=== PATIENT | female | born 1985 | race American Indian/Alaskan Native ===

== ENCOUNTER 2017-05-22 09:30 | Emergency (ER) | payer MEDICAID, OTHER ==
[2017-05-22] MEDS ORDERED: DUONEB *Not for PRN Use IH ONE (09:57)
--- NOTE | 2017-05-22 10:01 | Emergency Department Report ---
- General Chief Complaint: Upper Respiratory Infection Stated Complaint: SINUS INFECTED Time Seen by Provider: 05/22/17 09:51 Source: patient Mode of arrival: Ambulatory Limitations: No Limitations - History of Present Illness MD Complaint: cough, sore throat, nasal congestion, sinus pain -: Gradual, week(s) (2) Quality: aching Consistency: constant Improves With: nothing Worsens With: nothing Associated Symptoms: headache, nasal congestion, sore throat, dysuria, hoarseness, other (current menses). denies: fever, chills, myalgias, diaphoresis, rhinorrhea, stiff neck, cough, chest pain, shortness of breath, abdominal pain, nausea, vomiting, diarrhea, rash, confusion, right sweats, weight loss, epistaxis, ear pain Treatments Prior to Arrival: none - Related Data Previous Rx's Medication Instructions Recorded Last Taken Type Cefdinir 300 mg PO DAILY #5 capsule 05/22/17 Unknown Rx Allergies Allergy/AdvReac Type Severity Reaction Status Date / Time No Known Allergies Allergy Unverified 12/24/15 10:36 ED Review of Systems ROS: Stated complaint: SINUS INFECTED Other details as noted in HPI Comment: All other systems reviewed and negative Constitutional: no symptoms reported, see HPI. denies: chills, diaphoresis, fever, malaise, weakness Eyes: as per HPI. denies: eye pain, eye discharge, vision change ENT: as per HPI, throat pain, congestion. denies: ear pain, dental pain, hearing loss, epistaxis Respiratory: no symptoms reported, see HPI, cough. denies: orthopnea, shortness of breath, SOB with exertion, SOB at rest, stridor, wheezing Cardiovascular: as per HPI, chest pain. denies: palpitations, dyspnea on exertion, orthopnea Endocrine: no symptoms reported, see HPI. denies: excessive sweating, flushing , intolerance to cold, intolerance to heat Gastrointestinal: as per HPI. denies: abdominal pain, nausea, vomiting Genitourinary: as per HPI, dysuria. denies: urgency Musculoskeletal: as per HPI. denies: back pain, joint swelling Skin: as per HPI. denies: rash, lesions Neurological: as per HPI, headache. denies: weakness, numbness, paresthesias, confusion Psychiatric: as per HPI. denies: anxiety, depression Hematological/Lymphatic: as per HPI. denies: easy bleeding ED Past Medical Hx - Past Medical History Previous Medical History?: Yes Hx Hypertension: Yes Additional medical history: Kidney insufficiency- nephrotic syndrome - Surgical History Past Surgical History?: Yes Additional Surgical History: 01-06-2005 - Family History Family history: no significant - Social History Smoking Status: Never Smoker Substance Use Type: Alcohol, Non Opiate Pain, Other - Medications Home Medications: Home Medications Medication Instructions Recorded Confirmed Last Taken Type Cefdinir 300 mg PO DAILY #5 capsule 05/22/17 Unknown Rx ED Physical Exam - General Limitations: No Limitations General appearance: alert, in no apparent distress - Head Head exam: Present: atraumatic - Eye Eye exam: Present: normal appearance, PERRL - ENT ENT exam: Present: normal exam, normal orophraynx, mucous membranes moist, TM's normal bilaterally, normal external ear exam. Absent: mucous membranes dry - Neck Neck exam: Present: normal inspection, full ROM. Absent: tenderness, meningismus, lymphadenopathy, thyromegaly - Respiratory Respiratory exam: Present: normal lung sounds bilaterally, rhonchi (w cough). Absent: respiratory distress, wheezes, rales, stridor, chest wall tenderness, accessory muscle use, decreased breath sounds, prolonged expiratory - Cardiovascular Cardiovascular Exam: Present: regular rate, normal rhythm, normal heart sounds. Absent: bradycardia, tachycardia, irregular rhythm, JVD, S3, S4 - GI/Abdominal GI/Abdominal exam: Present: soft - Rectal Rectal exam: Present: deferred - Extremities Exam Extremities exam: Present: normal inspection, full ROM, normal capillary refill. Absent: tenderness, pedal edema, joint swelling - Back Exam Back exam: Present: normal inspection, full ROM. Absent: tenderness, CVA tenderness (R), CVA tenderness (L), muscle spasm, paraspinal tenderness, vertebral tenderness - Neurological Exam Neurological exam: Present: alert, oriented X3, CN II-XII intact, normal gait, reflexes normal. Absent: abnormal gait, motor sensory deficit - Psychiatric Psychiatric exam: Present: normal affect, normal mood - Skin Skin exam: Present: warm, dry, intact, normal color. Absent: rash ED Course Vital Signs 05/22/17 05/22/17 05/22/17 09:35 10:34 10:40 Temperature 97.6 F Pulse Rate 71 Pulse Rate [ 74 75 Bilateral Upper Lobe] Respiratory 18 Rate Respiratory 18 18 Rate [Bilateral Upper Lobe] Blood Pressure 115/76 Blood Pressure [Left] O2 Sat by Pulse 100 Oximetry 05/22/17 05/22/17 12:04 12:05 Temperature Pulse Rate 80 Pulse Rate [ Bilateral Upper Lobe] Respiratory 16 18 Rate Respiratory Rate [Bilateral Upper Lobe] Blood Pressure Blood Pressure 120/71 [Left] O2 Sat by Pulse 99 Oximetry - Reevaluation(s) Reevaluation #1: 05/22/17 to er w s/s urti for 2 w started as sinus congestion no fever non toxic non septic appearing hx nephrotic syndrome recent inc in cr and protienuria- neph has changed her meds on exam cough w rhochi no jvd no edema taking po w diff sinus tender hoarse post nasal drip rt tx and felt better ua noted- baseline for pt ED Medical Decision Making - Medical Decision Making urti non septic appearing - Differential Diagnosis urti ro pna Critical care attestation.: If time is entered above; I have spent that time in minutes in the direct care of this critically ill patient, excluding procedure time. ED Disposition Clinical Impression: Sinusitis, Upper respiratory infection due to [place] influenza virus, Nephrotic syndrome Disposition: DC-01 TO HOME OR SELFCARE Is pt being admited?: No Does the pt Need Aspirin: No Condition: Stable Instructions: Sinusitis (ED), Upper Respiratory Infection (ED) Additional Instructions: rest fluids no red bull meds as ordered today follow up pcp 2 days to be sure improving flonase over the counter twice per day for 5 days INCREASE YOUR PREDNISONE TO 20 MG ORALLY FOR 5 DAYS Prescriptions: Cefdinir 300 mg PO DAILY #5 capsule Referrals: PRIMARY CARE, [Primary Care Provider] - 3-5 Days Time of Disposition: 11:37
[2017-05-22 11:09] LABS: Bacteria,Urine 1+ /HPF (Negative); Bilirubin,Urine NEG (Negative); Blood,Urine LG (Negative); Ketones,Urine NEG (Negative); Leukocyte Esterase,Urine TR (Negative); Mucus,Urine FEW /HPF; Nitrite,Urine NEG (Negative); Urobilinogen,Urine < 2.0 mg/dL (<2.0)
[2017-05-22 11:10] LABS: Protein,Urine >500 mg/dL (Negative); RBC,Urine > 182.0 /HPF (0.0-6.0)
[2017-05-22 12:06] VITALS: BP 120/71
== END 2017-05-22 12:05 | disposition home or self-care (01) ==
LOC: ED 09:30
DX: J32.9 Chronic sinusitis, unspecified (principal); J06.9 Acute upper respiratory infection, unspecified; N05.9 Unspecified nephritic syndrome with unspecified morphologic changes; I10 Essential (primary) hypertension
CPT/HCPCS: 81001; 81025; 94640; 96372; 99283; J2930

== ENCOUNTER 2017-06-11 17:51 | Emergency (ER) | payer OTHER ==
[2017-06-11 18:25] VITALS: BP 116/64
[2017-06-11 18:54] LABS: Basophils % (Auto) 0.7 % (0.0-1.8); Eosinophils % (Auto) 1.6 % (0.0-4.3); Hematocrit 43.4 % (30.3-42.9); Hemoglobin 13.9 gm/dl (10.1-14.3); Mean Corpuscular HGB Conc 32 % (30-34); Mean Corpuscular Hemoglobin 28 pg (28-32); Mean Corpuscular Volume 86 fl (79-97); Platelet Count 169 K/mm3 (140-440); Red Blood Count 5.06 M/mm3 (3.65-5.03); Red Cell Distribution Width 13.5 % (13.2-15.2); White Blood Count 7.4 K/mm3 (4.5-11.0)
[2017-06-11 19:13] LABS: Anion Gap 15 mmol/L; BUN/Creatinine Ratio 28.57; Blood Urea Nitrogen 40 mg/dL (7-17); Calcium 7.2 mg/dL (8.4-10.2); Carbon Dioxide 23 mmol/L (22-30); Chloride 105.1 mmol/L (98-107); Glucose 88 mg/dL (65-100); Potassium 4.5 mmol/L (3.6-5.0); Sodium 139 mmol/L (137-145)
--- NOTE | 2017-06-12 09:33 | XRay Report ---
CHEST XRAY, 2 VIEWS: History: Shortness of breath. Findings: There is coarsening of the perihilar markings. The lungs are clear and well expanded. The pleural spaces are clear. The cardiac silhouette and pulmonary vasculature are within normal limits for technique. Calcified right hilar lymph node is noted consistent with chronic granulomas disease. The osseous structures appear within normal limits. IMPRESSION: Findings consistent with reactive airway disease or bronchiolitis.
== END 2017-06-11 21:10 | disposition left against medical advice (07) ==
LOC: ED 17:51
DX: R06.02 Shortness of breath (principal); Z53.21 Procedure and treatment not carried out due to patient leaving prior to being seen by health care provider
CPT/HCPCS: 36415; 71020; 80048; 84484; 84703; 85025; 93005; 93010

== ENCOUNTER 2017-07-25 06:19 | Inpatient (IN) | payer OTHER ==
[2017-07-25 07:22] LABS: Basophils % (Auto) 0.7 % (0.0-1.8); Eosinophils % (Auto) 5.2 % (0.0-4.3); Hematocrit 35.6 % (30.3-42.9); Hemoglobin 11.7 gm/dl (10.1-14.3); Mean Corpuscular HGB Conc 33 % (30-34); Mean Corpuscular Hemoglobin 28 pg (28-32); Mean Corpuscular Volume 84 fl (79-97); Platelet Count 146 K/mm3 (140-440); Red Blood Count 4.27 M/mm3 (3.65-5.03); Red Cell Distribution Width 13.2 % (13.2-15.2); White Blood Count 3.6 K/mm3 (4.5-11.0)
[2017-07-25 07:39] LABS: Alanine Aminotransferase 16 units/L (7-56); Albumin 1.4 g/dL (3.9-5); Albumin/Globulin Ratio 0.7 %; Alkaline Phosphatase 33 units/L (35-129); Anion Gap 14 mmol/L; BUN/Creatinine Ratio 46; Bilirubin,Total < 0.20 mg/dL (0.1-1.2); Blood Urea Nitrogen 65 mg/dL (7-17); Carbon Dioxide 25 mmol/L (22-30); Chloride 105.6 mmol/L (98-107); Glucose 92 mg/dL (65-100); Potassium 4.2 mmol/L (3.6-5.0); Sodium 140 mmol/L (137-145); Total Protein 3.5 g/dL (6.3-8.2)
--- NOTE | 2017-07-25 10:20 | Emergency Department Report ---
ED General Adult HPI - General Chief complaint: Medical Clearance Stated complaint: SWELLING ALL OVER BODY; SOB Time Seen by Provider: 07/25/17 10:17 Source: patient Mode of arrival: Ambulatory Limitations: No Limitations - History of Present Illness Initial comments: The patient states that despite taking her CellCept and Bumex as well as her usual steroid medication she is still swelling. She states that she has doubled up on her Bumex as her doctor has previously recommended. However she has not seen her nephrology group since January she tells me. She reports decreased urination, some orthopnea and leg and abdominal swelling. -: Gradual, days(s) Radiation: other (no pain complaint) Improves with: none Worsens with: none Associated Symptoms: denies other symptoms - Related Data Home Medications Medication Instructions Recorded Confirmed Last Taken Bumetanide 2 mg PO BID 07/25/17 07/25/17 07/24/17 Lisinopril 30 mg PO BID 07/25/17 07/25/17 07/24/17 Mycophenolate 500 mg PO BID 07/25/17 07/25/17 07/24/17 Potassium 40 meq PO BID 07/25/17 07/25/17 07/24/17 Prednisone 5 mg PO DAILY 07/25/17 07/25/17 07/24/17 Allergies Allergy/AdvReac Type Severity Reaction Status Date / Time No Known Allergies Allergy Unverified 12/24/15 10:36 ED Review of Systems ROS: Stated complaint: SWELLING ALL OVER BODY; SOB Other details as noted in HPI Constitutional: denies: chills, fever Eyes: denies: eye pain, eye discharge, vision change ENT: denies: ear pain, throat pain Respiratory: shortness of breath (and orthopnea). denies: cough, wheezing Cardiovascular: denies: chest pain, palpitations Endocrine: no symptoms reported Gastrointestinal: as per HPI, other (abdominal swelling). denies: abdominal pain, nausea, diarrhea Genitourinary: other (decreased urinating). denies: urgency, dysuria, discharge Musculoskeletal: other (leg edema). denies: back pain, joint swelling, arthralgia Skin: denies: rash, lesions Neurological: denies: headache, weakness, paresthesias Psychiatric: denies: anxiety, depression Hematological/Lymphatic: denies: easy bleeding, easy bruising ED Past Medical Hx - Past Medical History Previous Medical History?: Yes Hx Hypertension: Yes Additional medical history: Kidney insufficiency- nephrotic syndrome - Surgical History Past Surgical History?: Yes Additional Surgical History: 01-06-2005 - Social History Smoking Status: Never Smoker - Medications Home Medications: Home Medications Medication Instructions Recorded Confirmed Last Taken Type Bumetanide 2 mg PO BID 07/25/17 07/25/17 07/24/17 History Lisinopril 30 mg PO BID 07/25/17 07/25/17 07/24/17 History Mycophenolate 500 mg PO BID 07/25/17 07/25/17 07/24/17 History Potassium 40 meq PO BID 07/25/17 07/25/17 07/24/17 History Prednisone 5 mg PO DAILY 07/25/17 07/25/17 07/24/17 History ED Physical Exam - General Limitations: No Limitations General appearance: alert, in no apparent distress - Head Head exam: Present: atraumatic, normocephalic - Eye Eye exam: Present: normal appearance, PERRL, EOMI. Absent: scleral icterus - ENT ENT exam: Present: normal exam, mucous membranes moist - Neck Neck exam: Present: normal inspection. Absent: tenderness, meningismus - Respiratory Respiratory exam: Present: normal lung sounds bilaterally. Absent: respiratory distress - Cardiovascular Cardiovascular Exam: Present: regular rate, normal rhythm. Absent: systolic murmur, diastolic murmur, rubs, gallop - GI/Abdominal GI/Abdominal exam: Present: soft, normal bowel sounds, other (can't totally exclude ascites but the abdomen is certainly not at all tense and there is no palpable fluid wave). Absent: distended, tenderness, guarding, rebound, rigid - Extremities Exam Extremities exam: Present: full ROM, normal capillary refill, pedal edema, other (bilateral 1-2+ pretibial edema). Absent: tenderness, joint swelling, calf tenderness - Back Exam Back exam: Present: normal inspection - Neurological Exam Neurological exam: Present: alert, oriented X3, CN II-XII intact. Absent: motor sensory deficit - Psychiatric Psychiatric exam: Present: normal affect, normal mood - Skin Skin exam: Present: warm, dry, intact, normal color. Absent: rash ED Course Vital Signs 07/25/17 07/25/17 07/25/17 06:22 06:36 10:23 Temperature 98.0 F 98.0 F Pulse Rate 76 77 Respiratory 18 17 Rate Blood Pressure 114/70 114/70 111/67 O2 Sat by Pulse 99 100 Oximetry 07/25/17 07/25/17 07/25/17 10:28 10:30 10:32 Temperature Pulse Rate Respiratory Rate Blood Pressure 111/67 111/67 111/67 O2 Sat by Pulse 100 99 99 Oximetry 07/25/17 07/25/17 07/25/17 10:34 10:36 10:38 Temperature Pulse Rate Respiratory Rate Blood Pressure 111/67 111/67 111/67 O2 Sat by Pulse 98 99 99 Oximetry 07/25/17 07/25/17 07/25/17 10:40 11:22 11:34 Temperature Pulse Rate Respiratory Rate Blood Pressure 111/67 121/79 132/107 O2 Sat by Pulse 99 Oximetry - Reevaluation(s) Reevaluation #1: I spoke with Dr. Fritz, nephrology concerning this patient. He stated that if she is compliant with the medication that has been listless prescribed she should be admitted for nephrology consult them further care. I will inform Dr. Schaeffer. 07/25/17 12:41 ED Medical Decision Making - Lab Data Result diagrams: 07/25/17 06:57 07/25/17 06:57 Laboratory Results - last 24 hr 07/25/17 07/25/17 07/25/17 06:57 06:57 06:57 WBC 3.6 L RBC 4.27 Hgb 11.7 Hct 35.6 MCV 84 MCH 28 MCHC 33 RDW 13.2 Plt Count 146 Lymph % (Auto) 25.9 Roosevelt % (Auto) 12.4 H Eos % (Auto) 5.2 H Baso % (Auto) 0.7 Lymph # 0.9 L Roosevelt # 0.4 Eos # 0.2 Baso # 0.0 Seg Neutrophils % 55.8 Seg Neutrophils # 2.0 Sodium 140 Potassium 4.2 Chloride 105.6 Carbon Dioxide 25 Anion Gap 14 BUN 65 H Creatinine 1.4 H Estimated GFR 53 BUN/Creatinine Ratio 46 Glucose 92 Calcium 7.0 L Total Bilirubin < 0.20 AST 15 ALT 16 Alkaline Phosphatase 33 L NT-Pro-B Natriuret Pep 131.1 Total Protein 3.5 L Albumin 1.4 L Albumin/Globulin Ratio 0.7 - Radiology Data interpreted by me: Chest x-ray shows no acute process Critical care attestation.: If time is entered above; I have spent that time in minutes in the direct care of this critically ill patient, excluding procedure time. ED Disposition Clinical Impression: Nephrotic syndrome, Prerenal azotemia UTI (urinary tract infection) Qualifiers: Urinary tract infection type: site unspecified Hematuria presence: without hematuria Qualified Code(s): N39.0 - Urinary tract infection, site not specified Disposition: OP ADMIT IP TO THIS HOSP Is pt being admited?: Yes Does the pt Need Aspirin: Yes Condition: Stable Referrals: PRIMARY CARE, [Primary Care Provider] - 3-5 Days Time of Disposition: 12:54
[2017-07-25 11:12] LABS: Bacteria,Urine 2+ /HPF (Negative); Bilirubin,Urine NEG (Negative); Blood,Urine MOD (Negative); Ketones,Urine NEG (Negative); Leukocyte Esterase,Urine NEG (Negative); Mucus,Urine FEW /HPF; Nitrite,Urine NEG (Negative); Urobilinogen,Urine < 2.0 mg/dL (<2.0)
--- NOTE | 2017-07-25 12:03 | XRay Report ---
AP CHEST: HISTORY: Difficulty in breathing AP view of the chest demonstrates a normal mediastinal and cardiac contour with clear lungs and normal bony and soft tissue structures. IMPRESSION: Unremarkable AP chest. No change since 06/11/17.
[2017-07-25] MEDS ORDERED: ROCEPHIN/NS 1 GM/50 ML 1 GM/50 ML BAG IV ONE ×2 (12:51→14:06)
[2017-07-25] MEDS ORDERED: BABY ASPIRIN PO ONE (12:55)
[2017-07-25] MEDS ORDERED: BABY ASPIRIN ONE (14:06)
[2017-07-25] MEDS: DELTASONE PO SCH (22:30)
[2017-07-25] MEDS: K-DUR PO SCH (22:30)
--- NOTE | 2017-07-25 22:56 | History and Physical Report ---
History of Present Illness Date of examination: 07/25/17 Date of admission: 07/25/17 12:55 Chief complaint: Swelling whole body 1 week History of present illness: History of Present Illness The patient states that despite taking her CellCept and Bumex as well as her usual steroid medication she is still swelling. She states that she has doubled up on her Bumex as her doctor has previously recommended. However she has not seen her nephrology group since January . She reports decreased urination , some orthopnea and leg and abdominal swelling.On prednisone 5 mg po qd.Has Nephrotic syndrome for many years Past Medical History Previous Medical History?: Yes Hx Hypertension: Yes Additional medical history: Kidney insufficiency- nephrotic syndrome - Surgical History Past Surgical History?: Yes Additional Surgical History: 01-06-2005 - Social History Smoking Status: Never Smoker - Medications Home Medications: Home Medications Medication Instructions Recorded Confirmed Last Taken Type Bumetanide 2 mg PO BID 07/25/17 07/25/17 07/24/17 History Lisinopril 30 mg PO BID 07/25/17 07/25/17 07/24/17 History Mycophenolate 500 mg PO BID 07/25/17 07/25/17 07/24/17 History Potassium 40 meq PO BID 07/25/17 07/25/17 07/24/17 History Prednisone 5 mg PO DAILY 07/25/17 07/25/17 07/24/17 History Review of Systems Stated complaint: SWELLING ALL OVER BODY; SOB Other details as noted in HPI Constitutional: denies: chills, fever Eyes: denies: eye pain, eye discharge, vision change ENT: denies: ear pain, throat pain Respiratory: shortness of breath (and orthopnea). denies: cough, wheezing Cardiovascular: denies: chest pain, palpitations Endocrine: no symptoms reported Gastrointestinal: as per HPI, other (abdominal swelling). denies: abdominal pain, nausea, diarrhea Genitourinary: other (decreased urinating). denies: urgency, dysuria, discharge Musculoskeletal: other (leg edema). denies: back pain, joint swelling, arthralgia Skin: denies: rash, lesions Neurological: denies: headache, weakness, paresthesias Psychiatric: denies: anxiety, depression Hematological/Lymphatic: denies: easy bleeding, easy bruising Medications and Allergies Allergies Allergy/AdvReac Type Severity Reaction Status Date / Time No Known Allergies Allergy Unverified 12/24/15 10:36 Home Medications Medication Instructions Recorded Confirmed Last Taken Type Bumetanide 2 mg PO BID 07/25/17 07/25/17 07/24/17 History Lisinopril 30 mg PO BID 07/25/17 07/25/17 07/24/17 History Mycophenolate 500 mg PO BID 07/25/17 07/25/17 07/24/17 History Potassium 40 meq PO BID 07/25/17 07/25/17 07/24/17 History Prednisone 5 mg PO DAILY 07/25/17 07/25/17 07/24/17 History Active Meds: Active Medications Influenza Virus Vaccine Quadrival (Fluarix Quad 0720-1554(36 Mos+)) 0.5 ml IM .ONCE ONE Stop: 07/26/17 12:01 Exam - Constitutional Vitals: Temp Pulse Resp BP Pulse Ox 98.0 F 67 16 98/47 100 07/25/17 22:17 07/25/17 22:17 07/25/17 22:17 07/25/17 22:17 07/25/17 22:17 General appearance: Present: no acute distress, mild distress, well-nourished - EENT Eyes: Present: PERRL ENT: hearing intact, clear oral mucosa - Neck Neck: Present: supple, normal ROM - Respiratory Respiratory effort: normal Respiratory: bilateral: CTA - Cardiovascular Heart rate: 80 Rhythm: regular Heart Sounds: Present: S1 & S2. Absent: rub, click - Extremities Extremities: no ischemia, pulses intact, pulses symmetrical, No edema Extremity abnormal: edema (bilateral) Peripheral Pulses: within normal limits - Abdominal General gastrointestinal: Present: soft, non-tender, non-distended, normal bowel sounds Female genitourinary: Present: normal - Integumentary Integumentary: Present: clear, warm, dry - Musculoskeletal Musculoskeletal: gait normal, strength equal bilaterally - Psychiatric Psychiatric: appropriate mood/affect, intact judgment & insight - Neurologic Neurologic: CNII-XII intact, moves all extremities - Allied Health Allied health notes reviewed: nursing, case management Results - Labs CBC & Chem 7: 07/25/17 06:57 07/25/17 06:57 Labs: Laboratory Last Values WBC 3.6 K/mm3 (4.5-11.0) L 07/25/17 06:57 RBC 4.27 M/mm3 (3.65-5.03) 07/25/17 06:57 Hgb 11.7 gm/dl (10.1-14.3) 07/25/17 06:57 Hct 35.6 % (30.3-42.9) 07/25/17 06:57 MCV 84 fl (79-97) 07/25/17 06:57 MCH 28 pg (28-32) 07/25/17 06:57 MCHC 33 % (30-34) 07/25/17 06:57 RDW 13.2 % (13.2-15.2) 07/25/17 06:57 Plt Count 146 K/mm3 (140-440) 07/25/17 06:57 Lymph % (Auto) 25.9 % (13.4-35.0) 07/25/17 06:57 Yates % (Auto) 12.4 % (0.0-7.3) H 07/25/17 06:57 Eos % (Auto) 5.2 % (0.0-4.3) H 07/25/17 06:57 Baso % (Auto) 0.7 % (0.0-1.8) 07/25/17 06:57 Lymph # 0.9 K/mm3 (1.2-5.4) L 07/25/17 06:57 Yates # 0.4 K/mm3 (0.0-0.8) 07/25/17 06:57 Eos # 0.2 K/mm3 (0.0-0.4) 07/25/17 06:57 Baso # 0.0 K/mm3 (0.0-0.1) 07/25/17 06:57 Seg Neutrophils % 55.8 % (40.0-70.0) 07/25/17 06:57 Seg Neutrophils # 2.0 K/mm3 (1.8-7.7) 07/25/17 06:57 Sodium 140 mmol/L (137-145) 07/25/17 06:57 Potassium 4.2 mmol/L (3.6-5.0) 07/25/17 06:57 Chloride 105.6 mmol/L (98-107) 07/25/17 06:57 Carbon Dioxide 25 mmol/L (22-30) 07/25/17 06:57 Anion Gap 14 mmol/L 07/25/17 06:57 BUN 65 mg/dL (7-17) H 07/25/17 06:57 Creatinine 1.4 mg/dL (0.7-1.2) H 07/25/17 06:57 Estimated GFR 53 ml/min 07/25/17 06:57 BUN/Creatinine Ratio 46 % 07/25/17 06:57 Glucose 92 mg/dL (65-100) 07/25/17 06:57 Calcium 7.0 mg/dL (8.4-10.2) L 07/25/17 06:57 Total Bilirubin < 0.20 mg/dL (0.1-1.2) 07/25/17 06:57 AST 15 units/L (5-40) 07/25/17 06:57 ALT 16 units/L (7-56) 07/25/17 06:57 Alkaline Phosphatase 33 units/L (35-129) L 07/25/17 06:57 NT-Pro-B Natriuret Pep 131.1 pg/mL (0-450) 07/25/17 06:57 Total Protein 3.5 g/dL (6.3-8.2) L 07/25/17 06:57 Albumin 1.4 g/dL (3.9-5) L 07/25/17 06:57 Albumin/Globulin Ratio 0.7 % 07/25/17 06:57 Urine Color Yellow (Yellow) 07/25/17 10:50 Urine Turbidity Clear (Clear) 07/25/17 10:50 Urine pH 6.0 (5.0-7.0) 07/25/17 10:50 Ur Specific Chicken 1.015 (1.003-1.030) 07/25/17 10:50 Urine Protein 30 mg/dl mg/dL (Negative) 07/25/17 10:50 Urine Glucose (UA) Neg mg/dL (Negative) 07/25/17 10:50 Urine Ketones Neg mg/dL (Negative) 07/25/17 10:50 Urine Blood Mod (Negative) 07/25/17 10:50 Urine Nitrite Neg (Negative) 07/25/17 10:50 Urine Bilirubin Neg (Negative) 07/25/17 10:50 Urine Urobilinogen < 2.0 mg/dL (<2.0) 07/25/17 10:50 Ur Leukocyte Esterase Neg (Negative) 07/25/17 10:50 Urine WBC (Auto) 12.0 /HPF (0.0-6.0) H 07/25/17 10:50 Urine RBC (Auto) 2.0 /HPF (0.0-6.0) 07/25/17 10:50 U Epithel Cells (Auto) 8.0 /HPF (0-13.0) 07/25/17 10:50 Urine Bacteria (Auto) 2+ /HPF (Negative) 07/25/17 10:50 Urine Mucus Few /HPF 07/25/17 10:50 Urine HCG, Qual Negative (Negative) 07/25/17 10:50 BMP 07/25/17 06:57 Sodium 140 Potassium 4.2 Chloride 105.6 Carbon Dioxide 25 BUN 65 H Creatinine 1.4 H Glucose 92 Calcium 7.0 L Liver Function 07/25/17 Range/Units 06:57 Total Bilirubin < 0.20 (0.1-1.2) mg/dL AST 15 (5-40) units/L ALT 16 (7-56) units/L Alkaline Phosphatase 33 L (35-129) units/L Albumin 1.4 L (3.9-5) g/dL Urine 07/25/17 Range/Units 10:50 Urine Color Yellow (Yellow) Urine pH 6.0 (5.0-7.0) Ur Specific Chicken 1.015 (1.003-1.030) Urine Protein 30 mg/dl (Negative) mg/dL Urine Glucose (UA) Neg (Negative) mg/dL Assessment and Plan Advance Directives: Yes (FC) VTE prophylaxis?: Chemical Plan of care discussed with patient/family: Yes - Patient Problems (1) Nephrotic syndrome Current Visit: Yes Status: Acute Plan to address problem: Increased prednisone to 10 mg but will defer to Nephrology for further increases.Cont Cellcept. (2) Prerenal azotemia Current Visit: Yes Status: Acute Plan to address problem: Nephrology consulted (3) UTI (urinary tract infection) Current Visit: Yes Status: Acute Qualifiers: Urinary tract infection type: acute cystitis Hematuria presence: without hematuria Indwelling urinary catheter type: I Encounter type: E Qualified Code(s): N30.00 - Acute cystitis without hematuria Plan to address problem: On Rocephin (4) Severe malnutrition Current Visit: Yes Status: Acute Plan to address problem: Sec to Proteinuria. Dietitian consulted (5) DVT prophylaxis Current Visit: Yes Status: Acute Plan to address problem: on Heparin
[2017-07-25] MEDS ORDERED: BUMEX PO SCH (23:00)
[2017-07-25] MEDS ORDERED: LISINOPRIL 30 MG PO SCH (23:00)
[2017-07-25] MEDS ORDERED: BUMETANIDE 2 MG PO SCH (23:00)
[2017-07-25] MEDS ORDERED: NON-FORMULARY (Mycophenolate 500 MG) PO SCH (23:00)
[2017-07-25] MEDS: CELLCEPT PO SCH (23:50)
--- NOTE | 2017-07-26 07:36 | Progress Note ---
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 Claimed that she was compliant to her diuretic CellCept and all her meds. But still had significant swelling for which she didn't present to the hospital. She reported decreased urination orthopnea leg and abdominal swelling Fluid overload Due to an infarct syndrome, continue Lasix IV Nephrotic syndrome Continue SUSIE inhibitor, continue CellCept, nephrology consult UTI Continue Rocephin, follow-up urine culture Acute kidney injury/vasomotor nephropathy Kidney perfusion should improve with diuresis, nephrology on board, follow-up repeats creatinine HTN continue BP meds DVT prophylaxis Lovenox History Interval history: She is complaining of weight gain, reduced urine output, and edema of her abdominal wall Hospitalist Physical - Physical exam Narrative exam: General.: Appears well, no distress, nontoxic HEENT: Moist mucous membranes, extraocular muscles intact, no lymphadenopathy Neck: supple Cardiac: S1-S2 heard Lungs: clear to auscultation bilaterally Abdomen: soft , nontender, nondistended, bowel sounds positive edema of abdominal skin Extremities: no edema clubbing or cyanosis Skin: no rash or lesions Neurologic: no gross focal deficits Psych: appropriate behavior, appropriate mood, corporative, judgment intact - Constitutional Vitals: Temp Pulse Resp BP Pulse Ox 98.0 F 67 16 98/47 100 07/25/17 22:17 07/25/17 22:17 07/25/17 22:17 07/25/17 22:17 07/25/17 22:17 Results - Labs CBC & Chem 7: 07/26/17 07:39 07/26/17 07:39 Labs: Laboratory Last Values WBC 3.6 K/mm3 (4.5-11.0) L 07/25/17 06:57 RBC 4.27 M/mm3 (3.65-5.03) 07/25/17 06:57 Hgb 11.7 gm/dl (10.1-14.3) 07/25/17 06:57 Hct 35.6 % (30.3-42.9) 07/25/17 06:57 MCV 84 fl (79-97) 07/25/17 06:57 MCH 28 pg (28-32) 07/25/17 06:57 MCHC 33 % (30-34) 07/25/17 06:57 RDW 13.2 % (13.2-15.2) 07/25/17 06:57 Plt Count 146 K/mm3 (140-440) 07/25/17 06:57 Lymph % (Auto) 25.9 % (13.4-35.0) 07/25/17 06:57 [place] % (Auto) 12.4 % (0.0-7.3) H 07/25/17 06:57 Eos % (Auto) 5.2 % (0.0-4.3) H 07/25/17 06:57 Baso % (Auto) 0.7 % (0.0-1.8) 07/25/17 06:57 Lymph # 0.9 K/mm3 (1.2-5.4) L 07/25/17 06:57 [place] # 0.4 K/mm3 (0.0-0.8) 07/25/17 06:57 Eos # 0.2 K/mm3 (0.0-0.4) 07/25/17 06:57 Baso # 0.0 K/mm3 (0.0-0.1) 07/25/17 06:57 Seg Neutrophils % 55.8 % (40.0-70.0) 07/25/17 06:57 Seg Neutrophils # 2.0 K/mm3 (1.8-7.7) 07/25/17 06:57 Sodium 140 mmol/L (137-145) 07/25/17 06:57 Potassium 4.2 mmol/L (3.6-5.0) 07/25/17 06:57 Chloride 105.6 mmol/L (98-107) 07/25/17 06:57 Carbon Dioxide 25 mmol/L (22-30) 07/25/17 06:57 Anion Gap 14 mmol/L 07/25/17 06:57 BUN 65 mg/dL (7-17) H 07/25/17 06:57 Creatinine 1.4 mg/dL (0.7-1.2) H 07/25/17 06:57 Estimated GFR 53 ml/min 07/25/17 06:57 BUN/Creatinine Ratio 46 % 07/25/17 06:57 Glucose 92 mg/dL (65-100) 07/25/17 06:57 Calcium 7.0 mg/dL (8.4-10.2) L 07/25/17 06:57 Total Bilirubin < 0.20 mg/dL (0.1-1.2) 07/25/17 06:57 AST 15 units/L (5-40) 07/25/17 06:57 ALT 16 units/L (7-56) 07/25/17 06:57 Alkaline Phosphatase 33 units/L (35-129) L 07/25/17 06:57 NT-Pro-B Natriuret Pep 131.1 pg/mL (0-450) 07/25/17 06:57 Total Protein 3.5 g/dL (6.3-8.2) L 07/25/17 06:57 Albumin 1.4 g/dL (3.9-5) L 07/25/17 06:57 Albumin/Globulin Ratio 0.7 % 07/25/17 06:57 Urine Color Yellow (Yellow) 07/25/17 10:50 Urine Turbidity Clear (Clear) 07/25/17 10:50 Urine pH 6.0 (5.0-7.0) 07/25/17 10:50 Ur Specific [place] 1.015 (1.003-1.030) 07/25/17 10:50 Urine Protein 30 mg/dl mg/dL (Negative) 07/25/17 10:50 Urine Glucose (UA) Neg mg/dL (Negative) 07/25/17 10:50 Urine Ketones Neg mg/dL (Negative) 07/25/17 10:50 Urine Blood Mod (Negative) 07/25/17 10:50 Urine Nitrite Neg (Negative) 07/25/17 10:50 Urine Bilirubin Neg (Negative) 07/25/17 10:50 Urine Urobilinogen < 2.0 mg/dL (<2.0) 07/25/17 10:50 Ur Leukocyte Esterase Neg (Negative) 07/25/17 10:50 Urine WBC (Auto) 12.0 /HPF (0.0-6.0) H 07/25/17 10:50 Urine RBC (Auto) 2.0 /HPF (0.0-6.0) 07/25/17 10:50 U Epithel Cells (Auto) 8.0 /HPF (0-13.0) 07/25/17 10:50 Urine Bacteria (Auto) 2+ /HPF (Negative) 07/25/17 10:50 Urine Mucus Few /HPF 07/25/17 10:50 Urine HCG, Qual Negative (Negative) 07/25/17 10:50
[2017-07-26 08:10] LABS: Phosphorous 3.6 mg/dL (2.5-4.5)
[2017-07-26 08:13] LABS: Alanine Aminotransferase 13 units/L (7-56); Albumin 1.4 g/dL (3.9-5); Albumin/Globulin Ratio 0.6 %; Alkaline Phosphatase 34 units/L (35-129); Anion Gap 14 mmol/L; BUN/Creatinine Ratio 39; Bilirubin,Total < 0.20 mg/dL (0.1-1.2); Blood Urea Nitrogen 62 mg/dL (7-17); Calcium 7.1 mg/dL (8.4-10.2); Carbon Dioxide 24 mmol/L (22-30); Chloride 104.5 mmol/L (98-107); Glucose 118 mg/dL (65-100); Sodium 137 mmol/L (137-145); Total Protein 3.6 g/dL (6.3-8.2)
[2017-07-26 08:27] LABS: Hematocrit 35.6 % (30.3-42.9); Hemoglobin 11.5 gm/dl (10.1-14.3); Mean Corpuscular HGB Conc 32 % (30-34); Mean Corpuscular Hemoglobin 27 pg (28-32); Mean Corpuscular Volume 84 fl (79-97); Platelet Count 146 K/mm3 (140-440); Red Blood Count 4.23 M/mm3 (3.65-5.03); Red Cell Distribution Width 13.6 % (13.2-15.2); White Blood Count 3.9 K/mm3 (4.5-11.0)
[2017-07-26] MEDS: LASIX IV SCH ×2 (08:39→18:57)
--- NOTE | 2017-07-26 09:42 | Consultation ---
History of Present Illness - Reason for Consult Consult date: 07/26/17 proteinuria Requesting physician: KRISTOPHER THACKER - History of Present Illness Mrs. Mahajan is a 31-year-old -[place] female with past medical history significant for nephrotic syndrome as well as hypertension presented to the emergency room with increasing leg edema. She has been taking Bumex 2 mg twice a day without any significant improvement. She has a history of nephrotic syndrome for many years. States that she had a kidney biopsy done in [place] more than 10 years ago. She was treated with steroids as well as CellCept. She is currently seeing a manager city at [facility]. Earlier in November she was taking ibuprofen following which her renal function had deteriorated. However it was subsequently discontinued. She was having more protein spillage and her dosage of CellCept was increased as well. She is now admitted for diuresis Past History Past Medical History: hypertension, other (nephrotic syndrome) Past Surgical History: No surgical history Social history: other (denies smoking or drinking) Medications and Allergies Allergies Allergy/AdvReac Type Severity Reaction Status Date / Time No Known Allergies Allergy Unverified 12/24/15 10:36 Home Medications Medication Instructions Recorded Confirmed Last Taken Type Bumetanide 2 mg PO BID 07/25/17 07/25/17 07/24/17 History Lisinopril 30 mg PO BID 07/25/17 07/25/17 07/24/17 History Mycophenolate 500 mg PO BID 07/25/17 07/25/17 07/24/17 History Potassium 40 meq PO BID 07/25/17 07/25/17 07/24/17 History Prednisone 5 mg PO DAILY 07/25/17 07/25/17 07/24/17 History Active Meds: Active Medications Albumin Human (Alburx 25% (Albumin)) 25 gm IV Q12HR [place] Enoxaparin Sodium (Lovenox) 40 mg SUB-Q QDAY@2200 [place] Furosemide (Lasix) 40 mg IV 0600,1800 [place] Last Admin: 07/26/17 08:39 Dose: 40 mg Ceftriaxone Sodium (Rocephin/Ns 1 Gm/50 Ml) 1 gm in 50 mls @ 100 mls/hr IV Q24HR [place] PRN Reason: Protocol Influenza Virus Vaccine Quadrival (Fluarix Quad [id number](36 Mos+)) 0.5 ml IM .ONCE ONE Stop: 07/26/17 12:01 Lisinopril (Zestril) 30 mg PO BID [facility] Mycophenolate Mofetil (Cellcept) 500 mg PO BID [facility] Last Admin: 07/25/17 23:50 Dose: 500 mg Potassium Chloride (K-Dur) 40 meq PO BID [facility] Last Admin: 07/25/17 22:30 Dose: 40 meq Prednisone (Deltasone) 5 mg PO QDAY [facility] Last Admin: 07/25/17 22:30 Dose: 5 mg Review of Systems All systems: negative (negative except as noted above) Exam - Vital Signs Vital signs: Vital Signs Temp Pulse Resp BP Pulse Ox 98.0 F 76 18 114/70 99 07/25/17 06:22 07/25/17 06:22 07/25/17 06:22 07/25/17 06:22 07/25/17 06:22 - General Appearance General appearance: well-developed, well-nourished, appears stated age EENT: PERRL, mucous membranes moist Neck: Present: neck supple Respiratory: Clear to Ascultation Heart: regular, normal heart rate Gastrointestinal: Present: normal, normoactive bowel sounds, other (she also has some abdominal wall edema) Integumentary: no rash, other (1+ edema bilaterally) Results - Lab Results 07/26/17 07:39 07/26/17 07:39 Most recent lab results Calcium 7.1 mg/dL (8.4-10.2) L 07/26/17 07:39 Phosphorus 3.60 mg/dL (2.5-4.5) 07/26/17 07:39 Magnesium 2.00 mg/dL (1.7-2.3) 07/26/17 07:39 Assessment and Plan Impression * Nephrotic syndrome * Hypertension * Anasarca Recommendations * Shall add IV albumin prior to her Lasix * Shall check a urine protein creatinine ratio * Continue steroids as well as CellCept for now * Shall do vasculitis workup * She had seen our group in the past. Shall review office records regarding her renal workup and status. Shall try to obtain records from her [facility] manager city if available * She may need repeat kidney biopsy. Shall check her coagulation profile in anticipation of that * Thank you very much for the consultation. Shall follow along with you
[2017-07-26] MEDS ORDERED: POTASSIUM PO SCH (10:00)
[2017-07-26] MEDS ORDERED: NON-FORMULARY (Prednisone 10 MG) PO SCH (10:00)
[2017-07-26] MEDS: K-DUR PO SCH (10:37)
[2017-07-26] MEDS: ROCEPHIN/NS 1 GM/50 ML 1 GM/50 ML BAG IV SCH (10:37)
[2017-07-26] MEDS: DELTASONE PO SCH (10:37)
[2017-07-26] MEDS: CELLCEPT PO SCH ×2 (10:37→22:06)
[2017-07-26] MEDS: ZESTRIL PO SCH ×2 (10:38→22:06)
[2017-07-26] MEDS ORDERED: Fluarix Quad 2017-2018(36 MOS+) IM ONE (12:00)
[2017-07-26 14:26] LABS: INR 1.08 (0.87-1.13)
[2017-07-26] MEDS: ALBURX 25% (ALBUMIN) IV SCH (18:14)
[2017-07-26] MEDS ORDERED: LOVENOX SUB-Q SCH (22:00)
[2017-07-27] MEDS: ALBURX 25% (ALBUMIN) IV SCH ×2 (07:07→17:51)
[2017-07-27 07:09] LABS: Alanine Aminotransferase 9 units/L (7-56); Albumin 1.5 g/dL (3.9-5); Albumin/Globulin Ratio 0.7 %; Alkaline Phosphatase 30 units/L (35-129); Anion Gap 13 mmol/L; BUN/Creatinine Ratio 36; Bilirubin,Total < 0.20 mg/dL (0.1-1.2); Blood Urea Nitrogen 58 mg/dL (7-17); Calcium 7.1 mg/dL (8.4-10.2); Carbon Dioxide 24 mmol/L (22-30); Chloride 105.8 mmol/L (98-107); Glucose 97 mg/dL (65-100); Potassium 4.1 mmol/L (3.6-5.0); Sodium 139 mmol/L (137-145); Total Protein 3.7 g/dL (6.3-8.2)
[2017-07-27] MEDS: LASIX IV SCH ×2 (08:27→19:29)
--- NOTE | 2017-07-27 09:20 | Progress Note ---
Assessment and Plan Impression * Nephrotic syndrome * Hypertension * Anasarca Recommendations * Continue IV albumin with Lasix * Her urine shows only 1+ dipstick protein. Follow-up results of urine protein creatinine ratio as well as vasculitis workup * Continue steroids as well as CellCept for now * Patient serum albumin seems to be disproportionately low compared to her degree of proteinuria. Shall check an HIV titer as well * She had seen our group in the past. Shall review office records regarding her renal workup and status. 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 Pros and cons discussed with patient at length . Lovenox discontinued. PT/PTT normal Subjective Date of service: 07/27/17 Interval history: Patient is awake and alert. Responding better to IV albumin with Lasix. Edema seems to be improving. Patient denies any shortness of breath Objective - Vital Signs Vital signs: Vital Signs - 12hr 07/26/17 07/27/17 23:50 07:48 Temperature 97.5 F L 98.2 F Pulse Rate 68 65 Respiratory 18 18 Rate Blood Pressure 100/71 101/62 O2 Sat by Pulse 100 100 Oximetry - General Appearance General appearance: well-developed, well-nourished, appears stated age EENT: PERRL, mucous membranes moist Neck: no JVD, no thyromegaly, no carotid bruit, supple Respiratory: Present: Clear to Ascultation Cardiology: regular, normal heart rate, S1S2, no murmurs Gastrointestinal: normal, normoactive bowel sounds Integumentary: no rash, other (2+ edema. Especially over abdominal wall as well as her thigh) - Lab 07/26/17 07:39 07/27/17 06:28 Most recent lab results Calcium 7.1 mg/dL (8.4-10.2) L 07/27/17 06:28 Phosphorus 3.60 mg/dL (2.5-4.5) 07/26/17 07:39 Magnesium 2.00 mg/dL (1.7-2.3) 07/26/17 07:39
[2017-07-27] MEDS: ROCEPHIN/NS 1 GM/50 ML 1 GM/50 ML BAG IV SCH (09:53)
[2017-07-27] MEDS: CELLCEPT PO SCH ×2 (09:53→23:23)
[2017-07-27] MEDS: ZESTRIL PO SCH ×2 (09:54→23:24)
[2017-07-27] MEDS: DELTASONE PO SCH (09:54)
--- NOTE | 2017-07-27 11:25 | Progress Note ---
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 Claimed that she was compliant to her diuretic CellCept and all her meds. But still had significant swelling for which she didn't present to the hospital. She reported decreased urination orthopnea leg and abdominal swelling Fluid overload Due to an nephrotic syndrome, continue Lasix IV Nephrotic syndrome Continue SUSIE inhibitor, continue CellCept, nephrology consult appreciated -fup vasculitis lab, obtain renal bx, nephrology to obtain her med records from [facility] UTI was ruled out, urine cultures negative Acute kidney injury/vasomotor nephropathy Kidney perfusion should improve with diuresis, nephrology on board, follow-up repeats creatinine Will get HIV test and planned for Kidney biopsy tomorrow GERD -PPI HTN continue BP meds DVT prophylaxis Lovenox History Interval history: She is complaining of weight gain, reduced urine output, and edema of her abdominal Hospitalist Physical - Physical exam Narrative exam: General.: Appears well, no distress, nontoxic HEENT: Moist mucous membranes, extraocular muscles intact, no lymphadenopathy Neck: supple Cardiac: S1-S2 heard Lungs: clear to auscultation bilaterally Abdomen: soft , nontender, distended with shifting dullness cw ascites, bowel sounds positive edema of abdominal skin Extremities: no edema clubbing or cyanosis Skin: no rash or lesions Neurologic: no gross focal deficits Psych: appropriate behavior, appropriate mood, corporative, judgment intact - Constitutional Vitals: Temp Pulse Resp BP Pulse Ox 98.2 F 65 18 101/62 100 07/27/17 07:48 07/27/17 07:48 07/27/17 07:48 07/27/17 07:48 07/27/17 07:48 General appearance: Present: no acute distress, mild distress, well-nourished Results - Labs CBC & Chem 7: 07/26/17 07:39 07/27/17 06:28 Labs: Laboratory Last Values WBC 3.9 K/mm3 (4.5-11.0) L 07/26/17 07:39 RBC 4.23 M/mm3 (3.65-5.03) 07/26/17 07:39 Hgb 11.5 gm/dl (10.1-14.3) 07/26/17 07:39 Hct 35.6 % (30.3-42.9) 07/26/17 07:39 MCV 84 fl (79-97) 07/26/17 07:39 MCH 27 pg (28-32) L 07/26/17 07:39 MCHC 32 % (30-34) 07/26/17 07:39 RDW 13.6 % (13.2-15.2) 07/26/17 07:39 Plt Count 146 K/mm3 (140-440) 07/26/17 07:39 Lymph % (Auto) 25.9 % (13.4-35.0) 07/25/17 06:57 [place] % (Auto) 12.4 % (0.0-7.3) H 07/25/17 06:57 Eos % (Auto) 5.2 % (0.0-4.3) H 07/25/17 06:57 Baso % (Auto) 0.7 % (0.0-1.8) 07/25/17 06:57 Lymph # 0.9 K/mm3 (1.2-5.4) L 07/25/17 06:57 [place] # 0.4 K/mm3 (0.0-0.8) 07/25/17 06:57 Eos # 0.2 K/mm3 (0.0-0.4) 07/25/17 06:57 Baso # 0.0 K/mm3 (0.0-0.1) 07/25/17 06:57 Seg Neutrophils % 55.8 % (40.0-70.0) 07/25/17 06:57 Seg Neutrophils # 2.0 K/mm3 (1.8-7.7) 07/25/17 06:57 PT 14.6 Sec. (12.2-14.9) 07/26/17 11:31 INR 1.08 (0.87-1.13) 07/26/17 11:31 INR Cancelled 07/26/17 11:31 APTT 35.3 Sec. (24.2-36.6) 07/26/17 11:31 PT Patient/Control Mix Cancelled 07/26/17 11:31 PT Pat/Norm 1:1 5 min Cancelled 07/26/17 11:31 PT Pat/Norm 1:1 1 Hr Cancelled 07/26/17 11:31 Sodium 139 mmol/L (137-145) 07/27/17 06:28 Potassium 4.1 mmol/L (3.6-5.0) 07/27/17 06:28 Chloride 105.8 mmol/L (98-107) 07/27/17 06:28 Carbon Dioxide 24 mmol/L (22-30) 07/27/17 06:28 Anion Gap 13 mmol/L 07/27/17 06:28 BUN 58 mg/dL (7-17) H 07/27/17 06:28 Creatinine 1.6 mg/dL (0.7-1.2) H 07/27/17 06:28 Estimated GFR 45 ml/min 07/27/17 06:28 BUN/Creatinine Ratio 36 % 07/27/17 06:28 Glucose 97 mg/dL (65-100) 07/27/17 06:28 Calcium 7.1 mg/dL (8.4-10.2) L 07/27/17 06:28 Phosphorus 3.60 mg/dL (2.5-4.5) 07/26/17 07:39 Magnesium 2.00 mg/dL (1.7-2.3) 07/26/17 07:39 Total Bilirubin < 0.20 mg/dL (0.1-1.2) 07/27/17 06:28 AST 10 units/L (5-40) 07/27/17 06:28 ALT 9 units/L (7-56) 07/27/17 06:28 Alkaline Phosphatase 30 units/L (35-129) L 07/27/17 06:28 NT-Pro-B Natriuret Pep 131.1 pg/mL (0-450) 07/25/17 06:57 Total Protein 3.7 g/dL (6.3-8.2) L 07/27/17 06:28 Albumin 1.5 g/dL (3.9-5) L 07/27/17 06:28 Albumin/Globulin Ratio 0.7 % 07/27/17 06:28 Urine Color Yellow (Yellow) 07/25/17 10:50 Urine Turbidity Clear (Clear) 07/25/17 10:50 Urine pH 6.0 (5.0-7.0) 07/25/17 10:50 Ur Specific [place] 1.015 (1.003-1.030) 07/25/17 10:50 Urine Protein 30 mg/dl mg/dL (Negative) 07/25/17 10:50 Urine Glucose (UA) Neg mg/dL (Negative) 07/25/17 10:50 Urine Ketones Neg mg/dL (Negative) 07/25/17 10:50 Urine Blood Mod (Negative) 07/25/17 10:50 Urine Nitrite Neg (Negative) 07/25/17 10:50 Urine Bilirubin Neg (Negative) 07/25/17 10:50 Urine Urobilinogen < 2.0 mg/dL (<2.0) 07/25/17 10:50 Ur Leukocyte Esterase Neg (Negative) 07/25/17 10:50 Urine WBC (Auto) 12.0 /HPF (0.0-6.0) H 07/25/17 10:50 Urine RBC (Auto) 2.0 /HPF (0.0-6.0) 07/25/17 10:50 U Epithel Cells (Auto) 8.0 /HPF (0-13.0) 07/25/17 10:50 Urine Bacteria (Auto) 2+ /HPF (Negative) 07/25/17 10:50 Urine Mucus Few /HPF 07/25/17 10:50 Urine HCG, Qual Negative (Negative) 07/25/17 10:50 Hepatitis A IgM Ab Non-reactive (NonReactive) 07/26/17 11:31 Hep Bs Antigen Non-reactive (Negative) 07/26/17 11:31 Hep B Core IgM Ab Non-reactive (NonReactive) 07/26/17 11:31 Hepatitis C Antibody Non-reactive (NonReactive) 07/26/17 11:31
[2017-07-27] MEDS ORDERED: PROTONIX PO ONE (12:44)
[2017-07-27] MEDS ORDERED: ALUM-MAG HYDROX-SIMETH 200-200-20MG/5ML PO PRN (12:45)
[2017-07-27] MEDS ORDERED: DIFLUCAN PO ONE (15:19)
[2017-07-28 05:30] LABS: Basophils % (Auto) 0.4 % (0.0-1.8); Eosinophils % (Auto) 4.7 % (0.0-4.3); Hematocrit 29.8 % (30.3-42.9); Mean Corpuscular HGB Conc 34 % (30-34); Mean Corpuscular Hemoglobin 28 pg (28-32); Mean Corpuscular Volume 84 fl (79-97); Platelet Count 128 K/mm3 (140-440); Red Blood Count 3.54 M/mm3 (3.65-5.03); Red Cell Distribution Width 13.5 % (13.2-15.2); White Blood Count 4.4 K/mm3 (4.5-11.0)
[2017-07-28 05:45] LABS: Calcium 7.2 mg/dL (8.4-10.2); Chloride 106.8 mmol/L (98-107); Potassium 4.2 mmol/L (3.6-5.0)
[2017-07-28 06:27] LABS: HIV-1 Antigen p24 Non React (Non React); HIVR-1/2 Ab Non React (Non React)
[2017-07-28] MEDS: ALBURX 25% (ALBUMIN) IV SCH (07:38)
[2017-07-28] MEDS: LASIX IV SCH (07:54)
--- NOTE | 2017-07-28 08:39 | Progress Note ---
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 Subjective Date of service: 07/28/17 Interval history: Patient reports swelling is slow to improve. Denies SOB. Objective - Vital Signs Vital signs: Vital Signs - 12hr 07/27/17 07/28/17 07/28/17 23:24 00:06 07:18 Temperature 97.9 F 98.4 F Pulse Rate 68 58 L 70 Respiratory 18 15 Rate Blood Pressure 104/72 118/77 O2 Sat by Pulse 100 100 Oximetry - General Appearance General appearance: well-developed, well-nourished EENT: ATNC Respiratory: Present: Clear to Ascultation Cardiology: regular, S1S2 Gastrointestinal: other (flank wall edema) Neurologic: no focal deficit, alert and oriented x3 Musculoskeletal: other (+LE edema) Psychiatric: cooperative - Lab 07/28/17 04:25 07/28/17 04:25 Most recent lab results Calcium 7.2 mg/dL (8.4-10.2) L 07/28/17 04:25 Phosphorus 3.60 mg/dL (2.5-4.5) 07/26/17 07:39 Magnesium 2.00 mg/dL (1.7-2.3) 07/26/17 07:39 Urine Creatinine 62.7 mg/dL (0.1-20.0) H 07/26/17 11:50 Urine Total Protein > 854 mg/dL (5-11.8) H 07/26/17 11:50
--- NOTE | 2017-07-28 09:41 | Progress Note ---
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 Claimed that she was compliant to her diuretic CellCept and all her meds. But still had significant swelling for which she didn't present to the hospital. She reported decreased urination orthopnea leg and abdominal swelling Fluid overload Due to an nephrotic syndrome, continue Lasix IV Nephrotic syndrome Continue SUSIE inhibitor, increase steroid dose, continue CellCept, nephrology consult [facility] vasculitis lab, obtain renal bx, nephrology to obtain her med records from [place] -for kidney biopsy today UTI was ruled out, urine cultures negative Acute kidney injury/vasomotor nephropathy Kidney perfusion should improve with diuresis, nephrology on board, follow-up repeats creatinine HIV and hepatitis serology are negative, planned for Kidney biopsy today GERD -PPI HTN continue BP meds DVT prophylaxis Lovenox History Interval history: She says that urine output is increasing, but she still has a lot of ascites Hospitalist Physical - Physical exam Narrative exam: General.: Appears well, no distress, nontoxic HEENT: Moist mucous membranes, extraocular muscles intact, no lymphadenopathy Neck: supple Cardiac: S1-S2 heard Lungs: clear to auscultation bilaterally Abdomen: soft , nontender, distended with shifting dullness cw ascites, bowel sounds positive edema of abdominal skin Extremities: no edema clubbing or cyanosis Skin: no rash or lesions Neurologic: no gross focal deficits Psych: appropriate behavior, appropriate mood, corporative, judgment intact - Constitutional Vitals: Temp Pulse Resp BP Pulse Ox 98.4 F 70 15 118/77 100 07/28/17 07:18 07/28/17 07:18 07/28/17 07:18 07/28/17 07:18 07/28/17 07:18 General appearance: Present: no acute distress, well-nourished Results - Labs CBC & Chem 7: 07/28/17 04:25 07/28/17 04:25 Labs: Laboratory Last Values WBC 4.4 K/mm3 (4.5-11.0) L 07/28/17 04:25 RBC 3.54 M/mm3 (3.65-5.03) L 07/28/17 04:25 Hgb 10.0 gm/dl (10.1-14.3) L 07/28/17 04:25 Hct 29.8 % (30.3-42.9) L 07/28/17 04:25 MCV 84 fl (79-97) 07/28/17 04:25 MCH 28 pg (28-32) 07/28/17 04:25 MCHC 34 % (30-34) 07/28/17 04:25 RDW 13.5 % (13.2-15.2) 07/28/17 04:25 Plt Count 128 K/mm3 (140-440) L 07/28/17 04:25 Lymph % (Auto) 31.1 % (13.4-35.0) 07/28/17 04:25 [place] % (Auto) 8.2 % (0.0-7.3) H 07/28/17 04:25 Eos % (Auto) 4.7 % (0.0-4.3) H 07/28/17 04:25 Baso % (Auto) 0.4 % (0.0-1.8) 07/28/17 04:25 Lymph # 1.4 K/mm3 (1.2-5.4) 07/28/17 04:25 [place] # 0.4 K/mm3 (0.0-0.8) 07/28/17 04:25 Eos # 0.2 K/mm3 (0.0-0.4) 07/28/17 04:25 Baso # 0.0 K/mm3 (0.0-0.1) 07/28/17 04:25 Seg Neutrophils % 55.6 % (40.0-70.0) 07/28/17 04:25 Seg Neutrophils # 2.5 K/mm3 (1.8-7.7) 07/28/17 04:25 PT 14.6 Sec. (12.2-14.9) 07/26/17 11:31 INR 1.08 (0.87-1.13) 07/26/17 11:31 INR Cancelled 07/26/17 11:31 APTT 35.3 Sec. (24.2-36.6) 07/26/17 11:31 PT Patient/Control Mix Cancelled 07/26/17 11:31 PT Pat/Norm 1:1 5 min Cancelled 07/26/17 11:31 PT Pat/Norm 1:1 1 Hr Cancelled 07/26/17 11:31 Sodium 139 mmol/L (137-145) 07/28/17 04:25 Potassium 4.2 mmol/L (3.6-5.0) 07/28/17 04:25 Chloride 106.8 mmol/L (98-107) 07/28/17 04:25 Carbon Dioxide 22 mmol/L (22-30) 07/28/17 04:25 Anion Gap 14 mmol/L 07/28/17 04:25 BUN 49 mg/dL (7-17) H 07/28/17 04:25 Creatinine 1.5 mg/dL (0.7-1.2) H 07/28/17 04:25 Estimated GFR 49 ml/min 07/28/17 04:25 BUN/Creatinine Ratio 33 % 07/28/17 04:25 Glucose 87 mg/dL (65-100) 07/28/17 04:25 Calcium 7.2 mg/dL (8.4-10.2) L 07/28/17 04:25 Phosphorus 3.60 mg/dL (2.5-4.5) 07/26/17 07:39 Magnesium 2.00 mg/dL (1.7-2.3) 07/26/17 07:39 Total Bilirubin < 0.20 mg/dL (0.1-1.2) 07/27/17 06:28 AST 10 units/L (5-40) 07/27/17 06:28 ALT 9 units/L (7-56) 07/27/17 06:28 Alkaline Phosphatase 30 units/L (35-129) L 07/27/17 06:28 NT-Pro-B Natriuret Pep 131.1 pg/mL (0-450) 07/25/17 06:57 Total Protein 3.7 g/dL (6.3-8.2) L 07/27/17 06:28 Albumin 1.5 g/dL (3.9-5) L 07/27/17 06:28 Albumin/Globulin Ratio 0.7 % 07/27/17 06:28 Urine Color Yellow (Yellow) 07/25/17 10:50 Urine Turbidity Clear (Clear) 07/25/17 10:50 Urine pH 6.0 (5.0-7.0) 07/25/17 10:50 Ur Specific [place] 1.015 (1.003-1.030) 07/25/17 10:50 Urine Protein 30 mg/dl mg/dL (Negative) 07/25/17 10:50 Urine Glucose (UA) Neg mg/dL (Negative) 07/25/17 10:50 Urine Ketones Neg mg/dL (Negative) 07/25/17 10:50 Urine Blood Mod (Negative) 07/25/17 10:50 Urine Nitrite Neg (Negative) 07/25/17 10:50 Urine Bilirubin Neg (Negative) 07/25/17 10:50 Urine Urobilinogen < 2.0 mg/dL (<2.0) 07/25/17 10:50 Ur Leukocyte Esterase Neg (Negative) 07/25/17 10:50 Urine WBC (Auto) 12.0 /HPF (0.0-6.0) H 07/25/17 10:50 Urine RBC (Auto) 2.0 /HPF (0.0-6.0) 07/25/17 10:50 U Epithel Cells (Auto) 8.0 /HPF (0-13.0) 07/25/17 10:50 Urine Bacteria (Auto) 2+ /HPF (Negative) 07/25/17 10:50 Urine Mucus Few /HPF 07/25/17 10:50 Urine Eosinophils None seen (None Seen) 07/26/17 11:50 Urine Creatinine 62.7 mg/dL (0.1-20.0) H 07/26/17 11:50 Protein/Creatinin Ratio Not Reportable 07/26/17 11:50 Urine Total Protein > 854 mg/dL (5-11.8) H 07/26/17 11:50 Urine HCG, Qual Negative (Negative) 07/25/17 10:50 Complement C3 103 mg/dL (90-180) 07/26/17 11:31 Complement C4 41 mg/dL (16-47) 07/26/17 11:31 Hepatitis A IgM Ab Non-reactive (NonReactive) 07/26/17 11:31 Hep Bs Antigen Non-reactive (Negative) 07/26/17 11:31 Hep B Core IgM Ab Non-reactive (NonReactive) 07/26/17 11:31 Hepatitis C Antibody Non-reactive (NonReactive) 07/26/17 11:31 HIV 1&2 Antibody Rapid Non react (Non React) 07/28/17 04:25 HIV P24 Antigen Non react (Non React) 07/28/17 04:25
[2017-07-28] MEDS ORDERED: VERSED IV ONE (09:48)
[2017-07-28] MEDS ORDERED: SUBLIMAZE IV ONE (09:48)
[2017-07-28] MEDS ORDERED: ULTRAM ONE (11:38)
--- NOTE | 2017-07-28 11:54 | Cat Scan Report ---
CT BIOPSY RENAL LEFT HISTORY: Nephrotic syndrome. DESCRIPTION OF PROCEDURE: Informed consent was obtained. Sterile technique was utilized. Moderate sedation with Versed and fentanyl. The patient was sedated for 10 minutes. Intra-observer time of 20 minutes. Independent cardiorespiratory monitoring by RN. Using CT guidance, a 17-gauge introducer needle was advanced to the inferior pole left kidney. Two 18-gauge core biopsies were obtained. Followup scan demonstrates no evidence for uncontained hemorrhage. The patient tolerated the procedure well. IMPRESSION: Successful CT-guided biopsy at the inferior pole of the left kidney.
[2017-07-28 13:27] LABS: Myeloperoxidase Antibody <1.0 AI (<1.0)
[2017-07-28] MEDS: CELLCEPT PO SCH ×2 (13:57→22:26)
[2017-07-28] MEDS: ZESTRIL PO SCH ×2 (13:58→22:26)
[2017-07-28] MEDS: DELTASONE PO SCH (13:58)
[2017-07-28] MEDS ORDERED: ALBURX 25% (ALBUMIN) IV SCH (18:00)
[2017-07-28] MEDS: BUMEX IV SCH (18:57)
[2017-07-28 22:31] LABS: Basophils % (Auto) 0.3 % (0.0-1.8); Eosinophils % (Auto) 0.5 % (0.0-4.3); Mean Corpuscular HGB Conc 33 % (30-34); Mean Corpuscular Hemoglobin 28 pg (28-32); Mean Corpuscular Volume 84 fl (79-97); Platelet Count 144 K/mm3 (140-440); Red Blood Count 3.57 M/mm3 (3.65-5.03); Red Cell Distribution Width 13.3 % (13.2-15.2); White Blood Count 4.6 K/mm3 (4.5-11.0)
[2017-07-29] MEDS: ALBURX 25% (ALBUMIN) IV SCH ×2 (04:30→17:51)
[2017-07-29] MEDS: BUMEX IV SCH ×2 (06:45→18:56)
[2017-07-29 06:52] LABS: Basophils % (Auto) 0.2 % (0.0-1.8); Eosinophils % (Auto) 0.1 % (0.0-4.3); Hematocrit 30.2 % (30.3-42.9); Hemoglobin 10.1 gm/dl (10.1-14.3); Mean Corpuscular HGB Conc 33 % (30-34); Mean Corpuscular Hemoglobin 28 pg (28-32); Mean Corpuscular Volume 84 fl (79-97); Platelet Count 137 K/mm3 (140-440); Red Blood Count 3.59 M/mm3 (3.65-5.03); Red Cell Distribution Width 13.2 % (13.2-15.2)
[2017-07-29 07:10] LABS: Calcium 7.3 mg/dL (8.4-10.2); Chloride 106.1 mmol/L (98-107); Potassium 4.4 mmol/L (3.6-5.0)
--- NOTE | 2017-07-29 07:33 | Progress Note ---
Assessment and Plan Impression * Nephrotic syndrome --Hx of minimal change disease * Hypertension * Anasarca Recommendations * Renal function is stable * Continue IV diuresis - IV bumex w/ albumin prior to diuretic * Patient is s/p renal bx. Await pathology * Continue steroids as well as CellCept for now * Avoid nephrotoxins * Daily weights * Strict I/O * Patient is not yet cleared for d/c from a renal standpoint Subjective Date of service: 07/29/17 Interval history: Patient has no complaints today. Objective - Vital Signs Vital signs: Vital Signs - 12hr 07/28/17 07/28/17 07/28/17 22:00 22:26 23:49 Temperature 98.4 F Pulse Rate 60 68 Respiratory 18 18 Rate Blood Pressure 102/67 110/66 O2 Sat by Pulse 99 Oximetry - General Appearance General appearance: well-developed, well-nourished EENT: ATNC Respiratory: Present: Clear to Ascultation Cardiology: regular, S1S2 Gastrointestinal: other (flank wall edema) Integumentary: no rash Neurologic: alert and oriented x3 Musculoskeletal: other (trace-1+ LE edema) Psychiatric: cooperative - Lab 07/29/17 05:33 07/29/17 05:33 Most recent lab results Calcium 7.3 mg/dL (8.4-10.2) L 07/29/17 05:33 Phosphorus 3.60 mg/dL (2.5-4.5) 07/26/17 07:39 Magnesium 2.00 mg/dL (1.7-2.3) 07/26/17 07:39 Urine Creatinine 62.7 mg/dL (0.1-20.0) H 07/26/17 11:50 Urine Total Protein > 854 mg/dL (5-11.8) H 07/26/17 11:50
--- NOTE | 2017-07-29 09:39 | Progress Note ---
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 Claimed that she was compliant to her diuretic CellCept and all her meds. But still had significant swelling for which she didn't present to the hospital. She reported decreased urination orthopnea leg and abdominal swelling Fluid overload Due to an nephrotic syndrome, continue IV diuretics Nephrotic syndrome Continue SUSIE inhibitor, increase steroid dose, continue CellCept, nephrology consult [facility] vasculitis lab, nephrology to obtain her med records from [facility]/p kidney biopsy UTI was ruled out, urine cultures negative Acute kidney injury/vasomotor nephropathy creatinine stable, nephrology on board HIV and hepatitis serology are negative, s/p Kidney biopsy today GERD -PPI HTN continue BP meds DVT prophylaxis Lovenox History Interval history: She says that urine output is increasing, but she still has a lot of ascites Hospitalist Physical - Physical exam Narrative exam: General.: Appears well, no distress, nontoxic HEENT: Moist mucous membranes, extraocular muscles intact, no lymphadenopathy Neck: supple Cardiac: S1-S2 heard Lungs: clear to auscultation bilaterally Abdomen: soft , nontender, distended with shifting dullness cw ascites, bowel sounds positive edema of abdominal skin Extremities: no edema clubbing or cyanosis Skin: no rash or lesions Neurologic: no gross focal deficits Psych: appropriate behavior, appropriate mood, corporative, judgment intact - Constitutional Vitals: Temp Pulse Resp BP Pulse Ox 98.7 F 68 15 123/74 100 07/29/17 07:33 07/29/17 07:33 07/29/17 07:33 07/29/17 07:33 07/29/17 07:53 General appearance: Present: no acute distress, well-nourished Results - Labs CBC & Chem 7: 07/29/17 05:33 07/29/17 05:33 Labs: Laboratory Last Values WBC 5.0 K/mm3 (4.5-11.0) 07/29/17 05:33 RBC 3.59 M/mm3 (3.65-5.03) L 07/29/17 05:33 Hgb 10.1 gm/dl (10.1-14.3) 07/29/17 05:33 Hct 30.2 % (30.3-42.9) L 07/29/17 05:33 MCV 84 fl (79-97) 07/29/17 05:33 MCH 28 pg (28-32) 07/29/17 05:33 MCHC 33 % (30-34) 07/29/17 05:33 RDW 13.2 % (13.2-15.2) 07/29/17 05:33 Plt Count 137 K/mm3 (140-440) L 07/29/17 05:33 Lymph % (Auto) 13.0 % (13.4-35.0) L 07/29/17 05:33 [place] % (Auto) 5.2 % (0.0-7.3) 07/29/17 05:33 Eos % (Auto) 0.1 % (0.0-4.3) 07/29/17 05:33 Baso % (Auto) 0.2 % (0.0-1.8) 07/29/17 05:33 Lymph # 0.7 K/mm3 (1.2-5.4) L 07/29/17 05:33 [place] # 0.3 K/mm3 (0.0-0.8) 07/29/17 05:33 Eos # 0.0 K/mm3 (0.0-0.4) 07/29/17 05:33 Baso # 0.0 K/mm3 (0.0-0.1) 07/29/17 05:33 Seg Neutrophils % 81.5 % (40.0-70.0) H 07/29/17 05:33 Seg Neutrophils # 4.1 K/mm3 (1.8-7.7) 07/29/17 05:33 PT 14.6 Sec. (12.2-14.9) 07/26/17 11:31 INR 1.08 (0.87-1.13) 07/26/17 11:31 INR Cancelled 07/26/17 11:31 APTT 35.3 Sec. (24.2-36.6) 07/26/17 11:31 PT Patient/Control Mix Cancelled 07/26/17 11:31 PT Pat/Norm 1:1 5 min Cancelled 07/26/17 11:31 PT Pat/Norm 1:1 1 Hr Cancelled 07/26/17 11:31 Sodium 141 mmol/L (137-145) 07/29/17 05:33 Potassium 4.4 mmol/L (3.6-5.0) 07/29/17 05:33 Chloride 106.1 mmol/L (98-107) 07/29/17 05:33 Carbon Dioxide 22 mmol/L (22-30) 07/29/17 05:33 Anion Gap 17 mmol/L 07/29/17 05:33 BUN 48 mg/dL (7-17) H 07/29/17 05:33 Creatinine 1.6 mg/dL (0.7-1.2) H 07/29/17 05:33 Estimated GFR 45 ml/min 07/29/17 05:33 BUN/Creatinine Ratio 30 % 07/29/17 05:33 Glucose 100 mg/dL (65-100) 07/29/17 05:33 Calcium 7.3 mg/dL (8.4-10.2) L 07/29/17 05:33 Phosphorus 3.60 mg/dL (2.5-4.5) 07/26/17 07:39 Magnesium 2.00 mg/dL (1.7-2.3) 07/26/17 07:39 Total Bilirubin < 0.20 mg/dL (0.1-1.2) 07/27/17 06:28 AST 10 units/L (5-40) 07/27/17 06:28 ALT 9 units/L (7-56) 07/27/17 06:28 Alkaline Phosphatase 30 units/L (35-129) L 07/27/17 06:28 NT-Pro-B Natriuret Pep 131.1 pg/mL (0-450) 07/25/17 06:57 Total Protein 3.7 g/dL (6.3-8.2) L 07/27/17 06:28 Albumin 1.5 g/dL (3.9-5) L 07/27/17 06:28 Albumin/Globulin Ratio 0.7 % 07/27/17 06:28 Urine Color Yellow (Yellow) 07/25/17 10:50 Urine Turbidity Clear (Clear) 07/25/17 10:50 Urine pH 6.0 (5.0-7.0) 07/25/17 10:50 Ur Specific [place] 1.015 (1.003-1.030) 07/25/17 10:50 Urine Protein 30 mg/dl mg/dL (Negative) 07/25/17 10:50 Urine Glucose (UA) Neg mg/dL (Negative) 07/25/17 10:50 Urine Ketones Neg mg/dL (Negative) 07/25/17 10:50 Urine Blood Mod (Negative) 07/25/17 10:50 Urine Nitrite Neg (Negative) 07/25/17 10:50 Urine Bilirubin Neg (Negative) 07/25/17 10:50 Urine Urobilinogen < 2.0 mg/dL (<2.0) 07/25/17 10:50 Ur Leukocyte Esterase Neg (Negative) 07/25/17 10:50 Urine WBC (Auto) 12.0 /HPF (0.0-6.0) H 07/25/17 10:50 Urine RBC (Auto) 2.0 /HPF (0.0-6.0) 07/25/17 10:50 U Epithel Cells (Auto) 8.0 /HPF (0-13.0) 07/25/17 10:50 Urine Bacteria (Auto) 2+ /HPF (Negative) 07/25/17 10:50 Urine Mucus Few /HPF 07/25/17 10:50 Urine Eosinophils None seen (None Seen) 07/26/17 11:50 Urine Creatinine 62.7 mg/dL (0.1-20.0) H 07/26/17 11:50 Protein/Creatinin Ratio Not Reportable 07/26/17 11:50 Urine Total Protein > 854 mg/dL (5-11.8) H 07/26/17 11:50 Urine HCG, Qual Negative (Negative) 07/25/17 10:50 Proteinase 3 (PR3) Ab <1.0 AI (<1.0) 07/26/17 11:31 Myeloperoxidase Ab <1.0 AI (<1.0) 07/26/17 11:31 Complement C3 103 mg/dL (90-180) 07/26/17 11:31 Complement C4 41 mg/dL (16-47) 07/26/17 11:31 Hepatitis A IgM Ab Non-reactive (NonReactive) 07/26/17 11:31 Hep Bs Antigen Non-reactive (Negative) 07/26/17 11:31 Hep B Core IgM Ab Non-reactive (NonReactive) 07/26/17 11:31 Hepatitis C Antibody Non-reactive (NonReactive) 07/26/17 11:31 HIV 1&2 Antibody Rapid Non react (Non React) 07/28/17 04:25 HIV P24 Antigen Non react (Non React) 07/28/17 04:25
[2017-07-29] MEDS: CELLCEPT PO SCH ×2 (11:13→22:29)
[2017-07-29] MEDS: ZESTRIL PO SCH ×2 (11:13→22:40)
[2017-07-29] MEDS: DELTASONE PO SCH (11:14)
[2017-07-29] MEDS ORDERED: ZAROXOLYN PO SCH (18:00)
[2017-07-30 06:17] LABS: Basophils % (Auto) 0.1 % (0.0-1.8); Eosinophils % (Auto) 0.3 % (0.0-4.3); Hematocrit 28.2 % (30.3-42.9); Hemoglobin 9.7 gm/dl (10.1-14.3); Mean Corpuscular HGB Conc 34 % (30-34); Mean Corpuscular Hemoglobin 29 pg (28-32); Mean Corpuscular Volume 84 fl (79-97); Platelet Count 135 K/mm3 (140-440); Red Blood Count 3.38 M/mm3 (3.65-5.03); Red Cell Distribution Width 13.5 % (13.2-15.2); White Blood Count 6.9 K/mm3 (4.5-11.0)
[2017-07-30] MEDS: ALBURX 25% (ALBUMIN) IV SCH ×2 (06:25→18:00)
[2017-07-30 06:38] LABS: Calcium 7.2 mg/dL (8.4-10.2); Chloride 107.7 mmol/L (98-107); Potassium 4.2 mmol/L (3.6-5.0)
[2017-07-30] MEDS: BUMEX IV SCH ×2 (07:17→18:00)
--- NOTE | 2017-07-30 07:35 | Progress Note ---
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 Claimed that she was compliant to her diuretic CellCept and all her meds. But still had significant swelling for which she didn't present to the hospital. She reported decreased urination orthopnea leg and abdominal swelling Fluid overload Due to an nephrotic syndrome, continue IV diuretics and metolazone Nephrotic syndrome Continue SUSIE inhibitor, increase steroid dose, continue CellCept, nephrology consult appreciated -s/p kidney biopsy UTI was ruled out, urine cultures negative Acute kidney injury/vasomotor nephropathy creatinine stable, nephrology on board HIV and hepatitis serology are negative, s/p Kidney biopsy today GERD -PPI HTN continue BP meds DVT prophylaxis Lovenox History Interval history: She says that urine output is increasing, but she still has a lot of ascites Hospitalist Physical - Physical exam Narrative exam: General.: Appears well, no distress, nontoxic HEENT: Moist mucous membranes, extraocular muscles intact, no lymphadenopathy Neck: supple Cardiac: S1-S2 heard Lungs: clear to auscultation bilaterally Abdomen: soft , nontender, distended with shifting dullness cw ascites, bowel sounds positive edema of abdominal skin Extremities: no edema clubbing or cyanosis Skin: no rash or lesions Neurologic: no gross focal deficits Psych: appropriate behavior, appropriate mood, corporative, judgment intact - Constitutional Vitals: Temp Pulse Resp BP Pulse Ox 98.2 F 80 18 113/74 100 07/29/17 22:32 07/29/17 22:40 07/30/17 02:27 07/29/17 22:40 07/29/17 15:40 General appearance: Present: no acute distress, well-nourished Results - Labs CBC & Chem 7: 07/30/17 05:21 07/30/17 05:21 Labs: Laboratory Last Values WBC 6.9 K/mm3 (4.5-11.0) 07/30/17 05:21 RBC 3.38 M/mm3 (3.65-5.03) L 07/30/17 05:21 Hgb 9.7 gm/dl (10.1-14.3) L 07/30/17 05:21 Hct 28.2 % (30.3-42.9) L 07/30/17 05:21 MCV 84 fl (79-97) 07/30/17 05:21 MCH 29 pg (28-32) 07/30/17 05:21 MCHC 34 % (30-34) 07/30/17 05:21 RDW 13.5 % (13.2-15.2) 07/30/17 05:21 Plt Count 135 K/mm3 (140-440) L 07/30/17 05:21 Lymph % (Auto) 20.9 % (13.4-35.0) 07/30/17 05:21 [place] % (Auto) 7.6 % (0.0-7.3) H 07/30/17 05:21 Eos % (Auto) 0.3 % (0.0-4.3) 07/30/17 05:21 Baso % (Auto) 0.1 % (0.0-1.8) 07/30/17 05:21 Lymph # 1.4 K/mm3 (1.2-5.4) 07/30/17 05:21 [place] # 0.5 K/mm3 (0.0-0.8) 07/30/17 05:21 Eos # 0.0 K/mm3 (0.0-0.4) 07/30/17 05:21 Baso # 0.0 K/mm3 (0.0-0.1) 07/30/17 05:21 Seg Neutrophils % 71.1 % (40.0-70.0) H 07/30/17 05:21 Seg Neutrophils # 4.9 K/mm3 (1.8-7.7) 07/30/17 05:21 PT 14.6 Sec. (12.2-14.9) 07/26/17 11:31 INR 1.08 (0.87-1.13) 07/26/17 11:31 INR Cancelled 07/26/17 11:31 APTT 35.3 Sec. (24.2-36.6) 07/26/17 11:31 PT Patient/Control Mix Cancelled 07/26/17 11:31 PT Pat/Norm 1:1 5 min Cancelled 07/26/17 11:31 PT Pat/Norm 1:1 1 Hr Cancelled 07/26/17 11:31 Sodium 141 mmol/L (137-145) 07/30/17 05:21 Potassium 4.2 mmol/L (3.6-5.0) 07/30/17 05:21 Chloride 107.7 mmol/L (98-107) H 07/30/17 05:21 Carbon Dioxide 22 mmol/L (22-30) 07/30/17 05:21 Anion Gap 16 mmol/L 07/30/17 05:21 BUN 49 mg/dL (7-17) H 07/30/17 05:21 Creatinine 1.6 mg/dL (0.7-1.2) H 07/30/17 05:21 Estimated GFR 45 ml/min 07/30/17 05:21 BUN/Creatinine Ratio 31 % 07/30/17 05:21 Glucose 97 mg/dL (65-100) 07/30/17 05:21 Calcium 7.2 mg/dL (8.4-10.2) L 07/30/17 05:21 Phosphorus 3.60 mg/dL (2.5-4.5) 07/26/17 07:39 Magnesium 2.00 mg/dL (1.7-2.3) 07/26/17 07:39 Total Bilirubin < 0.20 mg/dL (0.1-1.2) 07/27/17 06:28 AST 10 units/L (5-40) 07/27/17 06:28 ALT 9 units/L (7-56) 07/27/17 06:28 Alkaline Phosphatase 30 units/L (35-129) L 07/27/17 06:28 NT-Pro-B Natriuret Pep 131.1 pg/mL (0-450) 07/25/17 06:57 Total Protein 3.7 g/dL (6.3-8.2) L 07/27/17 06:28 Albumin 1.5 g/dL (3.9-5) L 07/27/17 06:28 Albumin/Globulin Ratio 0.7 % 07/27/17 06:28 Urine Color Yellow (Yellow) 07/25/17 10:50 Urine Turbidity Clear (Clear) 07/25/17 10:50 Urine pH 6.0 (5.0-7.0) 07/25/17 10:50 Ur Specific [place] 1.015 (1.003-1.030) 07/25/17 10:50 Urine Protein 30 mg/dl mg/dL (Negative) 07/25/17 10:50 Urine Glucose (UA) Neg mg/dL (Negative) 07/25/17 10:50 Urine Ketones Neg mg/dL (Negative) 07/25/17 10:50 Urine Blood Mod (Negative) 07/25/17 10:50 Urine Nitrite Neg (Negative) 07/25/17 10:50 Urine Bilirubin Neg (Negative) 07/25/17 10:50 Urine Urobilinogen < 2.0 mg/dL (<2.0) 07/25/17 10:50 Ur Leukocyte Esterase Neg (Negative) 07/25/17 10:50 Urine WBC (Auto) 12.0 /HPF (0.0-6.0) H 07/25/17 10:50 Urine RBC (Auto) 2.0 /HPF (0.0-6.0) 07/25/17 10:50 U Epithel Cells (Auto) 8.0 /HPF (0-13.0) 07/25/17 10:50 Urine Bacteria (Auto) 2+ /HPF (Negative) 07/25/17 10:50 Urine Mucus Few /HPF 07/25/17 10:50 Urine Eosinophils None seen (None Seen) 07/26/17 11:50 Urine Creatinine 62.7 mg/dL (0.1-20.0) H 07/26/17 11:50 Protein/Creatinin Ratio Not Reportable 07/26/17 11:50 Urine Total Protein > 854 mg/dL (5-11.8) H 07/26/17 11:50 Urine HCG, Qual Negative (Negative) 07/25/17 10:50 CHRISTOPHER Screen Negative (Negative) 07/26/17 11:31 Proteinase 3 (PR3) Ab <1.0 AI (<1.0) 07/26/17 11:31 Myeloperoxidase Ab <1.0 AI (<1.0) 07/26/17 11:31 Complement C3 103 mg/dL (90-180) 07/26/17 11:31 Complement C4 41 mg/dL (16-47) 07/26/17 11:31 Hepatitis A IgM Ab Non-reactive (NonReactive) 07/26/17 11:31 Hep Bs Antigen Non-reactive (Negative) 07/26/17 11:31 Hep B Core IgM Ab Non-reactive (NonReactive) 07/26/17 11:31 Hepatitis C Antibody Non-reactive (NonReactive) 07/26/17 11:31 HIV 1&2 Antibody Rapid Non react (Non React) 07/28/17 04:25 HIV P24 Antigen Non react (Non React) 07/28/17 04:25
[2017-07-30] MEDS: CELLCEPT PO SCH ×2 (10:00→21:57)
[2017-07-30] MEDS: DELTASONE PO SCH (10:00)
[2017-07-30] MEDS: ZESTRIL PO SCH ×2 (10:00→21:57)
--- NOTE | 2017-07-30 14:58 | Progress Note ---
Assessment and Plan Impression * Nephrotic syndrome --Hx of minimal change disease * Hypertension * Anasarca Recommendations * Renal function is stable * Continue diuresis --Increase Bumex to 2mg IV BID w/ albumin --Add Metolazone daily * Patient is s/p renal bx. Await pathology * Continue steroids as well as CellCept for now * Avoid nephrotoxins * Daily weights * Strict I/O Subjective Date of service: 07/30/17 Interval history: Patient has no complaints today. Reports swelling. Objective - Vital Signs Vital signs: Vital Signs - 12hr 07/30/17 07/30/17 09:51 10:00 Temperature 98.3 F Pulse Rate 71 Respiratory 18 20 Rate Blood Pressure 115/70 115/70 O2 Sat by Pulse 100 Oximetry - General Appearance General appearance: well-developed, well-nourished Respiratory: Present: Clear to Ascultation Cardiology: regular, S1S2 Gastrointestinal: no tenderness, no distended, other (flank wall edema) Neurologic: no focal deficit, alert and oriented x3 Musculoskeletal: other (trace LE edema) Psychiatric: cooperative - Lab 07/30/17 05:21 07/30/17 05:21 Most recent lab results Calcium 7.2 mg/dL (8.4-10.2) L 07/30/17 05:21 Phosphorus 3.60 mg/dL (2.5-4.5) 07/26/17 07:39 Magnesium 2.00 mg/dL (1.7-2.3) 07/26/17 07:39 Urine Creatinine 62.7 mg/dL (0.1-20.0) H 07/26/17 11:50 Urine Total Protein > 854 mg/dL (5-11.8) H 07/26/17 11:50
[2017-07-30] MEDS ORDERED: ZAROXOLYN PO SCH (18:00)
[2017-07-31] MEDS: ALBURX 25% (ALBUMIN) IV SCH ×2 (06:46→19:17)
[2017-07-31 07:43] LABS: Basophils % (Auto) 0.4 % (0.0-1.8); Eosinophils % (Auto) 0.3 % (0.0-4.3); Hematocrit 29.3 % (30.3-42.9); Hemoglobin 9.7 gm/dl (10.1-14.3); Mean Corpuscular HGB Conc 33 % (30-34); Mean Corpuscular Hemoglobin 28 pg (28-32); Mean Corpuscular Volume 85 fl (79-97); Platelet Count 134 K/mm3 (140-440); Red Blood Count 3.45 M/mm3 (3.65-5.03); Red Cell Distribution Width 13.4 % (13.2-15.2); White Blood Count 8.7 K/mm3 (4.5-11.0)
[2017-07-31] MEDS: BUMEX IV SCH ×2 (07:43→21:38)
[2017-07-31 07:48] LABS: Calcium 7.5 mg/dL (8.4-10.2); Chloride 107.5 mmol/L (98-107); Potassium 3.6 mmol/L (3.6-5.0)
[2017-07-31] MEDS: ZESTRIL PO SCH (10:00)
[2017-07-31] MEDS: DELTASONE PO SCH (10:22)
[2017-07-31] MEDS: CELLCEPT PO SCH ×2 (10:22→21:50)
--- NOTE | 2017-07-31 14:50 | Progress Note ---
Assessment and Plan Impression * Nephrotic syndrome --Hx of minimal change disease * Hypertension * Anasarca - improved Recommendations * Discussed prelim results with patient - no evidence of crescentic GN, immune complex mediated disease * Renal function is stable. * Continue diuresis --Bumex to 2mg IV BID w/ albumin --Will give metolazone today * Continue steroids as well as CellCept for now. Will await final pathology report * Avoid nephrotoxins * Daily weights * Strict I/O * Plan for d/c tomorrow with outpatient nephrology f/u Subjective Date of service: 07/31/17 Interval history: Patient has no complaints today. Reports swelling has improved. Reports frequent urination with adjustment in diuretics. Objective - Vital Signs Vital signs: Vital Signs - 12hr 07/31/17 08:13 Temperature 97.6 F Pulse Rate 72 Respiratory 18 Rate Blood Pressure 111/80 O2 Sat by Pulse 100 Oximetry - General Appearance General appearance: well-developed, well-nourished EENT: ATNC Gastrointestinal: other (flank wall edema - improved) Integumentary: no rash, warm and dry Neurologic: no focal deficit, alert and oriented x3 Musculoskeletal: other (no LE edema) Psychiatric: cooperative - Lab 07/31/17 06:44 07/31/17 06:44 Most recent lab results Calcium 7.5 mg/dL (8.4-10.2) L 07/31/17 06:44 Phosphorus 3.60 mg/dL (2.5-4.5) 07/26/17 07:39 Magnesium 2.00 mg/dL (1.7-2.3) 07/26/17 07:39 Urine Creatinine 62.7 mg/dL (0.1-20.0) H 07/26/17 11:50 Urine Total Protein > 854 mg/dL (5-11.8) H 07/26/17 11:50
--- NOTE | 2017-07-31 18:57 | Progress Note ---
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 Claimed that she was compliant to her diuretic CellCept and all her meds. But still had significant swelling for which she didn't present to the hospital. She reported decreased urination orthopnea leg and abdominal swelling Fluid overload Due to an nephrotic syndrome, continue IV diuretics and metolazone Nephrotic syndrome Continue SUSIE inhibitor, increase steroid dose, continue CellCept, nephrology consult appreciated -s/p kidney biopsy, results pending UTI was ruled out, urine cultures negative Acute kidney injury/vasomotor nephropathy creatinine stable, nephrology on board HIV and hepatitis serology are negative, s/p Kidney biopsy GERD -PPI HTN continue BP meds DVT prophylaxis Lovenox History Interval history: She says that urine output is increasing, ascites is improved Hospitalist Physical - Physical exam Narrative exam: General.: Appears well, no distress, nontoxic HEENT: Moist mucous membranes, extraocular muscles intact, no lymphadenopathy Neck: supple Cardiac: S1-S2 heard Lungs: clear to auscultation bilaterally Abdomen: soft , nontender, distended with shifting dullness cw ascites, bowel sounds positive edema of abdominal skin Extremities: no edema clubbing or cyanosis Skin: no rash or lesions Neurologic: no gross focal deficits Psych: appropriate behavior, appropriate mood, corporative, judgment intact - Constitutional Vitals: Temp Pulse Resp BP Pulse Ox 98.6 F 71 18 111/65 100 07/31/17 16:53 07/31/17 16:53 07/31/17 16:53 07/31/17 16:53 07/31/17 16:53 General appearance: Present: no acute distress, well-nourished Results - Labs CBC & Chem 7: 07/31/17 06:44 07/31/17 06:44 Labs: Laboratory Last Values WBC 8.7 K/mm3 (4.5-11.0) 07/31/17 06:44 RBC 3.45 M/mm3 (3.65-5.03) L 07/31/17 06:44 Hgb 9.7 gm/dl (10.1-14.3) L 07/31/17 06:44 Hct 29.3 % (30.3-42.9) L 07/31/17 06:44 MCV 85 fl (79-97) 07/31/17 06:44 MCH 28 pg (28-32) 07/31/17 06:44 MCHC 33 % (30-34) 07/31/17 06:44 RDW 13.4 % (13.2-15.2) 07/31/17 06:44 Plt Count 134 K/mm3 (140-440) L 07/31/17 06:44 Lymph % (Auto) 20.0 % (13.4-35.0) 07/31/17 06:44 [place] % (Auto) 6.5 % (0.0-7.3) 07/31/17 06:44 Eos % (Auto) 0.3 % (0.0-4.3) 07/31/17 06:44 Baso % (Auto) 0.4 % (0.0-1.8) 07/31/17 06:44 Lymph # 1.7 K/mm3 (1.2-5.4) 07/31/17 06:44 [place] # 0.6 K/mm3 (0.0-0.8) 07/31/17 06:44 Eos # 0.0 K/mm3 (0.0-0.4) 07/31/17 06:44 Baso # 0.0 K/mm3 (0.0-0.1) 07/31/17 06:44 Seg Neutrophils % 72.8 % (40.0-70.0) H 07/31/17 06:44 Seg Neutrophils # 6.3 K/mm3 (1.8-7.7) 07/31/17 06:44 PT 14.6 Sec. (12.2-14.9) 07/26/17 11:31 INR 1.08 (0.87-1.13) 07/26/17 11:31 INR Cancelled 07/26/17 11:31 APTT 35.3 Sec. (24.2-36.6) 07/26/17 11:31 PT Patient/Control Mix Cancelled 07/26/17 11:31 PT Pat/Norm 1:1 5 min Cancelled 07/26/17 11:31 PT Pat/Norm 1:1 1 Hr Cancelled 07/26/17 11:31 Sodium 142 mmol/L (137-145) 07/31/17 06:44 Potassium 3.6 mmol/L (3.6-5.0) 07/31/17 06:44 Chloride 107.5 mmol/L (98-107) H 07/31/17 06:44 Carbon Dioxide 24 mmol/L (22-30) 07/31/17 06:44 Anion Gap 14 mmol/L 07/31/17 06:44 BUN 52 mg/dL (7-17) H 07/31/17 06:44 Creatinine 1.5 mg/dL (0.7-1.2) H 07/31/17 06:44 Estimated GFR 49 ml/min 07/31/17 06:44 BUN/Creatinine Ratio 35 % 07/31/17 06:44 Glucose 87 mg/dL (65-100) 07/31/17 06:44 Calcium 7.5 mg/dL (8.4-10.2) L 07/31/17 06:44 Phosphorus 3.60 mg/dL (2.5-4.5) 07/26/17 07:39 Magnesium 2.00 mg/dL (1.7-2.3) 07/26/17 07:39 Total Bilirubin < 0.20 mg/dL (0.1-1.2) 07/27/17 06:28 AST 10 units/L (5-40) 07/27/17 06:28 ALT 9 units/L (7-56) 07/27/17 06:28 Alkaline Phosphatase 30 units/L (35-129) L 07/27/17 06:28 NT-Pro-B Natriuret Pep 131.1 pg/mL (0-450) 07/25/17 06:57 Total Protein 3.7 g/dL (6.3-8.2) L 07/27/17 06:28 Albumin 1.5 g/dL (3.9-5) L 07/27/17 06:28 Albumin/Globulin Ratio 0.7 % 07/27/17 06:28 Urine Color Yellow (Yellow) 07/25/17 10:50 Urine Turbidity Clear (Clear) 07/25/17 10:50 Urine pH 6.0 (5.0-7.0) 07/25/17 10:50 Ur Specific [place] 1.015 (1.003-1.030) 07/25/17 10:50 Urine Protein 30 mg/dl mg/dL (Negative) 07/25/17 10:50 Urine Glucose (UA) Neg mg/dL (Negative) 07/25/17 10:50 Urine Ketones Neg mg/dL (Negative) 07/25/17 10:50 Urine Blood Mod (Negative) 07/25/17 10:50 Urine Nitrite Neg (Negative) 07/25/17 10:50 Urine Bilirubin Neg (Negative) 07/25/17 10:50 Urine Urobilinogen < 2.0 mg/dL (<2.0) 07/25/17 10:50 Ur Leukocyte Esterase Neg (Negative) 07/25/17 10:50 Urine WBC (Auto) 12.0 /HPF (0.0-6.0) H 07/25/17 10:50 Urine RBC (Auto) 2.0 /HPF (0.0-6.0) 07/25/17 10:50 U Epithel Cells (Auto) 8.0 /HPF (0-13.0) 07/25/17 10:50 Urine Bacteria (Auto) 2+ /HPF (Negative) 07/25/17 10:50 Urine Mucus Few /HPF 07/25/17 10:50 Urine Eosinophils None seen (None Seen) 07/26/17 11:50 Urine Creatinine 62.7 mg/dL (0.1-20.0) H 07/26/17 11:50 Protein/Creatinin Ratio Not Reportable 07/26/17 11:50 Urine Total Protein > 854 mg/dL (5-11.8) H 07/26/17 11:50 Urine HCG, Qual Negative (Negative) 07/25/17 10:50 CHRISTOPHER Screen Negative (Negative) 07/26/17 11:31 Proteinase 3 (PR3) Ab <1.0 AI (<1.0) 07/26/17 11:31 Myeloperoxidase Ab <1.0 AI (<1.0) 07/26/17 11:31 Double Strand DNA Ab <1 IU/mL (<=4) 07/26/17 11:31 Complement C3 103 mg/dL (90-180) 07/26/17 11:31 Complement C4 41 mg/dL (16-47) 07/26/17 11:31 Hepatitis A IgM Ab Non-reactive (NonReactive) 07/26/17 11:31 Hep Bs Antigen Non-reactive (Negative) 07/26/17 11:31 Hep B Core IgM Ab Non-reactive (NonReactive) 07/26/17 11:31 Hepatitis C Antibody Non-reactive (NonReactive) 07/26/17 11:31 HIV 1&2 Antibody Rapid Non react (Non React) 07/28/17 04:25 HIV P24 Antigen Non react (Non React) 07/28/17 04:25
[2017-07-31] MEDS: ZAROXOLYN PO SCH (21:02)
[2017-08-01] MEDS: ZESTRIL PO SCH ×2 (00:14→10:07)
[2017-08-01] MEDS: ALBURX 25% (ALBUMIN) IV SCH ×2 (05:24→17:22)
[2017-08-01] MEDS ORDERED: ZAROXOLYN PO SCH (05:30)
[2017-08-01] MEDS: BUMEX IV SCH ×2 (06:39→19:01)
[2017-08-01 07:11] LABS: Basophils % (Auto) 0.2 % (0.0-1.8); Eosinophils % (Auto) 0.7 % (0.0-4.3); Hematocrit 27.9 % (30.3-42.9); Hemoglobin 9.5 gm/dl (10.1-14.3); Mean Corpuscular HGB Conc 34 % (30-34); Mean Corpuscular Hemoglobin 28 pg (28-32); Mean Corpuscular Volume 84 fl (79-97); Platelet Count 131 K/mm3 (140-440); Red Blood Count 3.34 M/mm3 (3.65-5.03); Red Cell Distribution Width 13.2 % (13.2-15.2); White Blood Count 8.3 K/mm3 (4.5-11.0)
[2017-08-01 07:31] LABS: Calcium 7.8 mg/dL (8.4-10.2); Chloride 103.8 mmol/L (98-107); Potassium 3.4 mmol/L (3.6-5.0)
[2017-08-01] MEDS: CELLCEPT PO SCH ×2 (10:07→22:41)
[2017-08-01] MEDS: DELTASONE PO SCH (10:07)
--- NOTE | 2017-08-01 12:46 | Progress Note ---
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 Claimed that she was compliant to her diuretic CellCept and all her meds. But still had significant swelling for which she didn't present to the hospital. She reported decreased urination orthopnea leg and abdominal swelling Fluid overload Due to an nephrotic syndrome, continue IV diuretics and metolazone Nephrotic syndrome Continue SUSIE inhibitor, increase steroid dose, continue CellCept, nephrology consult appreciated -s/p kidney biopsy, results pending UTI was ruled out, urine cultures negative Acute kidney injury/vasomotor nephropathy creatinine improving with diuresis, nephrology on board HIV and hepatitis serology are negative, s/p Kidney biopsy GERD -PPI HTN continue BP meds DVT prophylaxis Lovenox History Interval history: She says that urine output is increasing, ascites is improved Hospitalist Physical - Physical exam Narrative exam: General.: Appears well, no distress, nontoxic HEENT: Moist mucous membranes, extraocular muscles intact, no lymphadenopathy Neck: supple Cardiac: S1-S2 heard Lungs: clear to auscultation bilaterally Abdomen: soft , nontender, distended with shifting dullness cw ascites, bowel sounds positive edema of abdominal skin Extremities: no edema clubbing or cyanosis Skin: no rash or lesions Neurologic: no gross focal deficits Psych: appropriate behavior, appropriate mood, corporative, judgment intact - Constitutional Vitals: Temp Pulse Resp BP Pulse Ox 98.4 F 55 L 18 112/68 100 08/01/17 08:05 08/01/17 08:05 08/01/17 08:05 08/01/17 10:07 08/01/17 08:05 General appearance: Present: no acute distress, well-nourished Results - Labs CBC & Chem 7: 08/01/17 06:46 08/01/17 06:46 Labs: Laboratory Last Values WBC 8.3 K/mm3 (4.5-11.0) 08/01/17 06:46 RBC 3.34 M/mm3 (3.65-5.03) L 08/01/17 06:46 Hgb 9.5 gm/dl (10.1-14.3) L 08/01/17 06:46 Hct 27.9 % (30.3-42.9) L 08/01/17 06:46 MCV 84 fl (79-97) 08/01/17 06:46 MCH 28 pg (28-32) 08/01/17 06:46 MCHC 34 % (30-34) 08/01/17 06:46 RDW 13.2 % (13.2-15.2) 08/01/17 06:46 Plt Count 131 K/mm3 (140-440) L 08/01/17 06:46 Lymph % (Auto) 22.3 % (13.4-35.0) 08/01/17 06:46 Coleman % (Auto) 7.9 % (0.0-7.3) H 08/01/17 06:46 Eos % (Auto) 0.7 % (0.0-4.3) 08/01/17 06:46 Baso % (Auto) 0.2 % (0.0-1.8) 08/01/17 06:46 Lymph # 1.9 K/mm3 (1.2-5.4) 08/01/17 06:46 Coleman # 0.7 K/mm3 (0.0-0.8) 08/01/17 06:46 Eos # 0.1 K/mm3 (0.0-0.4) 08/01/17 06:46 Baso # 0.0 K/mm3 (0.0-0.1) 08/01/17 06:46 Seg Neutrophils % 68.9 % (40.0-70.0) 08/01/17 06:46 Seg Neutrophils # 5.7 K/mm3 (1.8-7.7) 08/01/17 06:46 PT 14.6 Sec. (12.2-14.9) 07/26/17 11:31 INR 1.08 (0.87-1.13) 07/26/17 11:31 INR Cancelled 07/26/17 11:31 APTT 35.3 Sec. (24.2-36.6) 07/26/17 11:31 PT Patient/Control Mix Cancelled 07/26/17 11:31 PT Pat/Norm 1:1 5 min Cancelled 07/26/17 11:31 PT Pat/Norm 1:1 1 Hr Cancelled 07/26/17 11:31 Sodium 142 mmol/L (137-145) 08/01/17 06:46 Potassium 3.4 mmol/L (3.6-5.0) L 08/01/17 06:46 Chloride 103.8 mmol/L (98-107) 08/01/17 06:46 Carbon Dioxide 27 mmol/L (22-30) 08/01/17 06:46 Anion Gap 15 mmol/L 08/01/17 06:46 BUN 52 mg/dL (7-17) H 08/01/17 06:46 Creatinine 1.3 mg/dL (0.7-1.2) H 08/01/17 06:46 Estimated GFR 58 ml/min 08/01/17 06:46 BUN/Creatinine Ratio 40 % 08/01/17 06:46 Glucose 83 mg/dL (65-100) 08/01/17 06:46 Calcium 7.8 mg/dL (8.4-10.2) L 08/01/17 06:46 Phosphorus 3.60 mg/dL (2.5-4.5) 07/26/17 07:39 Magnesium 2.00 mg/dL (1.7-2.3) 07/26/17 07:39 Total Bilirubin < 0.20 mg/dL (0.1-1.2) 07/27/17 06:28 AST 10 units/L (5-40) 07/27/17 06:28 ALT 9 units/L (7-56) 07/27/17 06:28 Alkaline Phosphatase 30 units/L (35-129) L 07/27/17 06:28 NT-Pro-B Natriuret Pep 131.1 pg/mL (0-450) 07/25/17 06:57 Total Protein 3.7 g/dL (6.3-8.2) L 07/27/17 06:28 Albumin 1.5 g/dL (3.9-5) L 07/27/17 06:28 Albumin/Globulin Ratio 0.7 % 07/27/17 06:28 Urine Color Yellow (Yellow) 07/25/17 10:50 Urine Turbidity Clear (Clear) 07/25/17 10:50 Urine pH 6.0 (5.0-7.0) 07/25/17 10:50 Ur Specific [place] 1.015 (1.003-1.030) 07/25/17 10:50 Urine Protein 30 mg/dl mg/dL (Negative) 07/25/17 10:50 Urine Glucose (UA) Neg mg/dL (Negative) 07/25/17 10:50 Urine Ketones Neg mg/dL (Negative) 07/25/17 10:50 Urine Blood Mod (Negative) 07/25/17 10:50 Urine Nitrite Neg (Negative) 07/25/17 10:50 Urine Bilirubin Neg (Negative) 07/25/17 10:50 Urine Urobilinogen < 2.0 mg/dL (<2.0) 07/25/17 10:50 Ur Leukocyte Esterase Neg (Negative) 07/25/17 10:50 Urine WBC (Auto) 12.0 /HPF (0.0-6.0) H 07/25/17 10:50 Urine RBC (Auto) 2.0 /HPF (0.0-6.0) 07/25/17 10:50 U Epithel Cells (Auto) 8.0 /HPF (0-13.0) 07/25/17 10:50 Urine Bacteria (Auto) 2+ /HPF (Negative) 07/25/17 10:50 Urine Mucus Few /HPF 07/25/17 10:50 Urine Eosinophils None seen (None Seen) 07/26/17 11:50 Urine Creatinine 62.7 mg/dL (0.1-20.0) H 07/26/17 11:50 Protein/Creatinin Ratio Not Reportable 07/26/17 11:50 Urine Total Protein > 854 mg/dL (5-11.8) H 07/26/17 11:50 Urine HCG, Qual Negative (Negative) 07/25/17 10:50 CHRISTOPHER Screen Negative (Negative) 07/26/17 11:31 Proteinase 3 (PR3) Ab <1.0 AI (<1.0) 07/26/17 11:31 Myeloperoxidase Ab <1.0 AI (<1.0) 07/26/17 11:31 Double Strand DNA Ab <1 IU/mL (<=4) 07/26/17 11:31 Complement C3 103 mg/dL (90-180) 07/26/17 11:31 Complement C4 41 mg/dL (16-47) 07/26/17 11:31 Hepatitis A IgM Ab Non-reactive (NonReactive) 07/26/17 11:31 Hep Bs Antigen Non-reactive (Negative) 07/26/17 11:31 Hep B Core IgM Ab Non-reactive (NonReactive) 07/26/17 11:31 Hepatitis C Antibody Non-reactive (NonReactive) 07/26/17 11:31 HIV 1&2 Antibody Rapid Non react (Non React) 07/28/17 04:25 HIV P24 Antigen Non react (Non React) 07/28/17 04:25
[2017-08-01] MEDS: ZAROXOLYN PO SCH (18:30)
--- NOTE | 2017-08-01 20:01 | Progress Note ---
Assessment and Plan Impression * Nephrotic syndrome --Hx of minimal change disease --Resighini kidney bx: prelim report - no evidence of crescentic GN, immune complex mediated disease * Hypertension * Anasarca - improved Recommendations * Renal function is stable. * Continue diuresis - can d/c to home on Bumex 2mg BID w/ add'l 5 days of Metolazone 5mg QAM * Continue Bumex to 2mg IV BID w/ albumin while hospitalized * Continue steroids as well as CellCept for now. Will await final pathology report * Avoid nephrotoxins * Daily weights * Strict I/O Subjective Date of service: 08/01/17 Interval history: Patient feels swelling has improved. UOP 2.7 liters yesterday. Objective - Vital Signs Vital signs: Vital Signs - 12hr 08/01/17 08/01/17 08/01/17 08:05 10:07 10:09 Temperature 98.4 F Pulse Rate 55 L Respiratory 18 Rate Blood Pressure 112/68 112/68 Blood Pressure 110/65 [Left] O2 Sat by Pulse 100 Oximetry 08/01/17 08/01/17 08/01/17 16:36 17:20 18:10 Temperature 98.1 F 98.1 F 98.5 F Pulse Rate 64 64 66 Respiratory 18 18 18 Rate Blood Pressure 111/64 Blood Pressure 111/64 110/67 [Left] O2 Sat by Pulse 96 Oximetry - General Appearance General appearance: well-developed, well-nourished EENT: ATNC Respiratory: Present: Clear to Ascultation Cardiology: regular, S1S2 Gastrointestinal: normal, no tenderness, no distended, other (flank wall edema - improved) Neurologic: alert and oriented x3 Musculoskeletal: other (no edema) Psychiatric: cooperative - Lab 08/01/17 06:46 08/01/17 06:46 Most recent lab results Calcium 7.8 mg/dL (8.4-10.2) L 08/01/17 06:46 Phosphorus 3.60 mg/dL (2.5-4.5) 07/26/17 07:39 Magnesium 2.00 mg/dL (1.7-2.3) 07/26/17 07:39 Urine Creatinine 62.7 mg/dL (0.1-20.0) H 07/26/17 11:50 Urine Total Protein > 854 mg/dL (5-11.8) H 07/26/17 11:50
[2017-08-02] MEDS: ALBURX 25% (ALBUMIN) IV SCH (05:03)
[2017-08-02] MEDS: BUMEX IV SCH (05:57)
[2017-08-02 07:00] LABS: Basophils % (Auto) 0.4 % (0.0-1.8); Eosinophils % (Auto) 0.9 % (0.0-4.3); Hematocrit 30.1 % (30.3-42.9); Mean Corpuscular HGB Conc 33 % (30-34); Mean Corpuscular Hemoglobin 28 pg (28-32); Mean Corpuscular Volume 84 fl (79-97); Platelet Count 163 K/mm3 (140-440); Red Blood Count 3.57 M/mm3 (3.65-5.03); Red Cell Distribution Width 13.4 % (13.2-15.2); White Blood Count 9.1 K/mm3 (4.5-11.0)
[2017-08-02 07:17] LABS: Calcium 7.8 mg/dL (8.4-10.2); Chloride 102.5 mmol/L (98-107); Potassium 3.4 mmol/L (3.6-5.0)
[2017-08-02 07:25] VITALS: BP 125/67
--- NOTE | 2017-08-02 09:35 | Progress Note ---
Subjective Interval history: Patient was seen today for follow-up on multiple renal related issues Patient denies any complaints, cough, chest pain, pressure, shortness of breath Events over 24 hours vitals, labs, intake and output. Medications were reviewed Allergies: Reviewed Past medical history: Reviewed Social history: Reviewed Family history: Reviewed Current medications: Reviewed Physical examination Vitals: Reviewed Gen.: No acute distress, alert HEENT: Oral mucosa moist. No icterus Neck: Supple, no JVD Chest: Clear to auscultation anteriorly and posteriorly. No wheezes Heart: Regular rate and rhythm, S1, S2 heard, no S3, S4 Abdomen: Soft, nontender. No renal bruit. No CVA tenderness. No suprapubic fullness Extremity: Dry skin, less than 1+ edema Skin: Dry skin. No purpuric rash Assessment and plan Nephrotic syndrome. Patient currently does have minimal edema. Still continues to have nephrotic range proteinuria Hypertension with hypokalemia, currently on Bumex. We'll start Aldactone 25 mg once a day along with lisinopril and follow I have advised about diet and lifestyle changes Patient is stable from renal standpoint of view to be discharged I have advised her to make an appointment in our clinic for follow-up this week on . I have given her my contact information Patient has been very poorly compliant with diet and lifestyle All related issues were discussed with patient and simple [place], patient does exhibit good understanding of kidney related problems Labs were explained and simple [place] Renal prognosis is guarded at this time We'll continue to follow and make recommendation from renal standpoint Objective - Vital Signs Vital signs: Vital Signs - 12hr 08/01/17 08/01/17 08/02/17 22:00 23:56 00:00 Temperature Pulse Rate 58 L Respiratory 18 Rate Respiratory 18 Rate [Head] Blood Pressure 131/80 Blood Pressure [Left] O2 Sat by Pulse Oximetry 08/02/17 08/02/17 08/02/17 04:58 05:22 07:23 Temperature 98.8 F 98.0 F 98.5 F Pulse Rate 57 L 60 60 Respiratory 18 18 18 Rate Respiratory Rate [Head] Blood Pressure 113/54 125/67 Blood Pressure 107/60 [Left] O2 Sat by Pulse 100 99 Oximetry - Lab 08/02/17 06:35 08/02/17 06:35 Most recent lab results Calcium 7.8 mg/dL (8.4-10.2) L 08/02/17 06:35 Phosphorus 3.60 mg/dL (2.5-4.5) 07/26/17 07:39 Magnesium 2.00 mg/dL (1.7-2.3) 07/26/17 07:39 Urine Creatinine 62.7 mg/dL (0.1-20.0) H 07/26/17 11:50 Urine Total Protein > 854 mg/dL (5-11.8) H 07/26/17 11:50
[2017-08-02] MEDS ORDERED: ALDACTONE PO SCH ×3 (10:00→11:00)
[2017-08-02] MEDS: DELTASONE PO SCH (10:42)
[2017-08-02] MEDS: ZESTRIL PO SCH ×2 (10:42)
--- NOTE | 2017-08-02 10:51 | Discharge Summary ---
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 But still continue to have significant generalized swelling for which initially she didn't present to the hospital. But then she developed decreased urination, orthopnea, worsening leg and abdominal wall swelling. She f/u with [facility]. She was admitted to the hospital for further evaluation and management. Discharge diagnosis and management: Fluid overload Due to nephrotic syndrome, improved with IV diuretics and metolazone she will continue bumex 2mg po BID at home Nephrotic syndrome with AGUSTINA Continue SUSIE inhibitor, increased steroid dose, continue CellCept, nephrology consult appreciated -s/p kidney biopsy, results pending which she will f/u with nephrology outpt - HIV and hepatitis serology are negative UTI was ruled out, urine cultures negative GERD -cont PPI HTN continue home BP meds Disposition: DC- TO HOME OR SELFCARE Time spent for discharge: 32 minutes Core Measure Documentation - Palliative Care Palliative Care/ Comfort Measures: Not Applicable - Core Measures Any of the following diagnoses?: none Exam - Physical Exam Narrative exam: General.: Appears well, no distress, nontoxic HEENT: Moist mucous membranes, extraocular muscles intact, no lymphadenopathy Neck: supple Cardiac: S1-S2 heard Lungs: clear to auscultation bilaterally Abdomen: soft , nontender, non distended, bowel sounds positive edema of abdominal skin Extremities: no edema clubbing or cyanosis Skin: no rash or lesions Neurologic: no gross focal deficits Psych: appropriate behavior, appropriate mood, corporative, judgment intact - Constitutional Vitals: Temp Pulse Resp BP Pulse Ox 98.5 F 60 18 125/67 99 08/02/17 07:23 08/02/17 07:23 08/02/17 07:23 08/02/17 07:23 08/02/17 07:23 Plan Activity: advance as tolerated Weight Bearing Status: Weight Bear as Tolerated Diet: renal Additional Instructions: f/u with nephrology in one week Follow up with: PRIMARY CARE, [Primary Care Provider] - 3-5 Days Prescriptions: Bumetanide [Bumex 1 mg tab] 2 mg PO 0600,1800 #60 tablet Mycophenolate [Cellcept] 500 mg PO BID #60 tablet predniSONE [Deltasone] 20 mg PO QDAY #14 tablet
[2017-08-02] MEDS: CELLCEPT PO SCH (13:36)
[2017-08-02] MEDS ORDERED: BUMEX PO SCH (18:00)
== END 2017-08-02 14:00 | disposition home or self-care (01) | DRG 698 ==
LOC: ED 06:19 → 3A 12:55
PROVIDERS: ADMIT Internal Medicine; ATTEND Internal Medicine
PROC: 0TB13ZX Excision of Left Kidney, Percutaneous Approach, Diagnostic (ICD-10-PCS; principal; 2017-07-28)
DX: N04.9 Nephrotic syndrome with unspecified morphologic changes (principal); E43 Unspecified severe protein-calorie malnutrition; N17.0 Acute kidney failure with tubular necrosis; I10 Essential (primary) hypertension; Z79.899 Other long term (current) drug therapy; K21.9 Gastro-esophageal reflux disease without esophagitis; E87.70 Fluid overload, unspecified; Z68.27 Body mass index [BMI] 27.0-27.9, adult
CPT/HCPCS: 36415; 71010; 77012; 80048; 80053; 80074; 81001; 81025; 82570; 83735; 83880; 84100; 84156; 85025; 85027; 85610; 85730; 86021; 86038; 86160; 86225; 87086; 87806; 89050; 90686; 96365; J0696; J1650; J1940; J2250; J3010; J7512; J7517; P9047

== ENCOUNTER 2018-03-15 09:00 | Outpatient (CLI) | payer BC ==
[2018-03-15 09:15] LABS: Hematocrit 47.9 % (30.3-42.9); Hemoglobin 15.8 gm/dl (10.1-14.3); Mean Corpuscular HGB Conc 33 % (30-34); Mean Corpuscular Hemoglobin 28 pg (28-32); Mean Corpuscular Volume 84 fl (79-97); Platelet Count 170 K/mm3 (140-440); Red Blood Count 5.71 M/mm3 (3.65-5.03); Red Cell Distribution Width 13.8 % (13.2-15.2)
[2018-03-15 09:43] LABS: Creatinine,Urine 36.8 mg/dL (0.1-20.0); Microalbumin/Creatinine Ratio 279.8 ug/mg
[2018-03-15 10:15] LABS: Alanine Aminotransferase 13 units/L (7-56); Albumin 4.1 g/dL (3.9-5); BUN/Creatinine Ratio 31; Blood Urea Nitrogen 28 mg/dL (7-17); Calcium 8.6 mg/dL (8.4-10.2); Hemolysis Index 15
== END 2018-03-15 09:01 | disposition home or self-care (01) ==
LOC: LAB 09:00
DX: I10 Essential (primary) hypertension (principal); N04.8 Nephrotic syndrome with other morphologic changes; R63.5 Abnormal weight gain
CPT/HCPCS: 36415; 80053; 82043; 85027

== ENCOUNTER 2018-11-21 20:05 | Emergency (ER) | payer BC ==
[2018-11-21 20:20] VITALS: BP 128/84
[2018-11-21] MEDS ORDERED: TYLENOL ONE (20:26)
[2018-11-21 20:58] LABS: HCG Qualitative,Urine Negative (Negative)
[2018-11-21 21:01] LABS: Bacteria,Urine 1+ /HPF (Negative); Bilirubin,Urine NEG (Negative); Blood,Urine NEG (Negative); Color,Urine Yellow (Yellow); RBC,Urine < 1.0 /HPF (0.0-6.0)
--- NOTE | 2018-11-22 01:19 | Emergency Department Report ---
ED ENT HPI - General Chief complaint: Fever Stated complaint: FEVER/BODYACHE/SORE THROAT Time Seen by Provider: 11/22/18 00:15 Source: patient Mode of arrival: Ambulatory Limitations: No Limitations - History of Present Illness Initial comments: 2 MD complaint: sore throat -: Gradual Location: throat Severity: moderate Quality: dull Consistency: constant Improves with: none Worsens with: none Associated Symptoms: sore throat. denies: fever, gum swelling, tinnitus, discharge from ear, rhinorrhea - Related Data Home Medications Medication Instructions Recorded Confirmed Last Taken Bumetanide 2 mg PO BID 07/25/17 07/25/17 07/24/17 Lisinopril 30 mg PO BID 07/25/17 07/25/17 07/24/17 Mycophenolate 500 mg PO BID 07/25/17 07/25/17 07/24/17 Potassium 40 meq PO BID 07/25/17 07/25/17 07/24/17 Prednisone 5 mg PO DAILY 07/25/17 07/25/17 07/24/17 Previous Rx's Medication Instructions Recorded Last Taken Type Bumetanide [Bumex 1 mg tab] 2 mg PO 0600,1800 #60 tablet 08/02/17 Unknown Rx Mycophenolate [Cellcept] 500 mg PO BID #60 tablet 08/02/17 Unknown Rx Spironolactone [Aldactone] 25 mg PO QDAY tablet 08/02/17 Unknown Rx predniSONE [Deltasone] 20 mg PO QDAY #14 tablet 08/02/17 Unknown Rx Amoxicillin 500 mg PO QID #40 capsule 11/22/18 Unknown Rx Lidocaine Viscous 2% 5 ml MM Q3H PRN #120 udc 11/22/18 Unknown Rx Allergies Allergy/AdvReac Type Severity Reaction Status Date / Time No Known Allergies Allergy Unverified 12/24/15 10:36 ED Dental HPI - General Chief complaint: Fever Stated complaint: FEVER/BODYACHE/SORE THROAT Time Seen by Provider: 11/22/18 00:15 Source: patient Mode of arrival: Ambulatory Limitations: No Limitations - Related Data Home Medications Medication Instructions Recorded Confirmed Last Taken Bumetanide 2 mg PO BID 07/25/17 07/25/17 07/24/17 Lisinopril 30 mg PO BID 07/25/17 07/25/17 07/24/17 Mycophenolate 500 mg PO BID 07/25/17 07/25/17 07/24/17 Potassium 40 meq PO BID 07/25/17 07/25/17 07/24/17 Prednisone 5 mg PO DAILY 07/25/17 07/25/17 07/24/17 Previous Rx's Medication Instructions Recorded Last Taken Type Bumetanide [Bumex 1 mg tab] 2 mg PO 0600,1800 #60 tablet 08/02/17 Unknown Rx Mycophenolate [Cellcept] 500 mg PO BID #60 tablet 08/02/17 Unknown Rx Spironolactone [Aldactone] 25 mg PO QDAY tablet 08/02/17 Unknown Rx predniSONE [Deltasone] 20 mg PO QDAY #14 tablet 08/02/17 Unknown Rx Amoxicillin 500 mg PO QID #40 capsule 11/22/18 Unknown Rx Lidocaine Viscous 2% 5 ml MM Q3H PRN #120 udc 11/22/18 Unknown Rx Allergies Allergy/AdvReac Type Severity Reaction Status Date / Time No Known Allergies Allergy Unverified 12/24/15 10:36 ED Review of Systems ROS: Stated complaint: FEVER/BODYACHE/SORE THROAT Other details as noted in HPI Constitutional: denies: chills, fever Eyes: denies: eye pain, eye discharge, vision change ENT: throat pain. denies: ear pain Respiratory: denies: cough, shortness of breath, wheezing Cardiovascular: denies: chest pain, palpitations Endocrine: no symptoms reported Gastrointestinal: denies: abdominal pain, nausea, diarrhea Genitourinary: denies: urgency, dysuria, discharge Musculoskeletal: denies: back pain, joint swelling, arthralgia Skin: denies: rash, lesions Neurological: denies: headache, weakness, paresthesias Psychiatric: denies: anxiety, depression Hematological/Lymphatic: denies: easy bleeding, easy bruising ED Past Medical Hx - Past Medical History Hx Hypertension: Yes Hx Congestive Heart Failure: No Hx Diabetes: No Hx Asthma: No Hx COPD: No Hx HIV: No Additional medical history: Kidney insufficiency- nephrotic syndrome - Surgical History Additional Surgical History: 01-06-2005 - Social History Smoking Status: Never Smoker Substance Use Type: None - Medications Home Medications: Home Medications Medication Instructions Recorded Confirmed Last Taken Type Bumetanide 2 mg PO BID 07/25/17 07/25/17 07/24/17 History Lisinopril 30 mg PO BID 07/25/17 07/25/17 07/24/17 History Mycophenolate 500 mg PO BID 07/25/17 07/25/17 07/24/17 History Potassium 40 meq PO BID 07/25/17 07/25/17 07/24/17 History Prednisone 5 mg PO DAILY 07/25/17 07/25/17 07/24/17 History Bumetanide [Bumex 1 mg tab] 2 mg PO 0600,1800 #60 tablet 08/02/17 Unknown Rx Mycophenolate [Cellcept] 500 mg PO BID #60 tablet 08/02/17 Unknown Rx Spironolactone [Aldactone] 25 mg PO QDAY tablet 08/02/17 Unknown Rx predniSONE [Deltasone] 20 mg PO QDAY #14 tablet 08/02/17 Unknown Rx Amoxicillin 500 mg PO QID #40 capsule 11/22/18 Unknown Rx Lidocaine Viscous 2% 5 ml MM Q3H PRN #120 udc 11/22/18 Unknown Rx ED Physical Exam - General Limitations: No Limitations General appearance: alert, in no apparent distress - Head Head exam: Present: atraumatic, normocephalic - Eye Eye exam: Present: normal appearance, PERRL, EOMI - ENT ENT exam: Present: normal exam, normal orophraynx, mucous membranes moist, other (drainage, red, swollen with exudate.) - Neck Neck exam: Present: normal inspection, other (no evidence of any peritonsillar abscess. Airway is patent. Voice is normal. No drooling.) - Respiratory Respiratory exam: Present: normal lung sounds bilaterally, chest wall tenderness, decreased breath sounds, prolonged expiratory. Absent: respiratory distress, wheezes, rales - Cardiovascular Cardiovascular Exam: Present: regular rate, normal rhythm, bradycardia. Absent: systolic murmur, diastolic murmur, rubs, gallop - GI/Abdominal GI/Abdominal exam: Present: soft, normal bowel sounds. Absent: distended, tenderness, hyperactive bowel sounds - Extremities Exam Extremities exam: Present: normal inspection - Back Exam Back exam: Present: normal inspection - Neurological Exam Neurological exam: Present: alert, oriented X3 - Psychiatric Psychiatric exam: Present: normal affect, normal mood - Skin Skin exam: Present: warm, dry, intact, normal color. Absent: rash ED Course Vital Signs 11/21/18 11/21/18 11/22/18 20:10 20:15 00:57 Temperature 102.7 F H 102.7 F H 98.8 F Pulse Rate 95 H 85 Respiratory 18 18 Rate Blood Pressure 128/84 128/84 O2 Sat by Pulse 98 99 Oximetry ED Medical Decision Making - Differential Diagnosis viral pharyngitis, malignancy, mono, ANUG Critical care attestation.: If time is entered above; I have spent that time in minutes in the direct care of this critically ill patient, excluding procedure time. ED Disposition Clinical Impression: Exudative pharyngitis Disposition: DC- TO HOME OR SELFCARE Is pt being admited?: No Does the pt Need Aspirin: No Condition: Stable Instructions: Pharyngitis (ED) Prescriptions: Amoxicillin 500 mg PO QID #40 capsule Lidocaine Viscous 2% 5 ml MM Q3H PRN #120 udc PRN Reason: Pain, Moderate (4-6) Referrals: SANTIAGO HALL MD [Primary Care Provider] - 3-5 Days
== END 2018-11-22 01:30 | disposition home or self-care (01) ==
LOC: ED 20:05
DX: J02.9 Acute pharyngitis, unspecified (principal); I10 Essential (primary) hypertension
CPT/HCPCS: 81001; 81025; 99283

== ENCOUNTER 2019-04-11 10:08 | Outpatient (CLI) | payer BC ==
[2019-04-11 10:40] LABS: Hematocrit 42.7 % (30.3-42.9); Hemoglobin 14.6 gm/dl (10.1-14.3); Mean Corpuscular HGB Conc 34 % (30-34); Mean Corpuscular Volume 84 fl (79-97); Platelet Count 191 K/mm3 (140-440); Red Blood Count 5.12 M/mm3 (3.65-5.03); Red Cell Distribution Width 13.9 % (13.2-15.2)
[2019-04-11 10:47] LABS: Creatinine,Urine 172.2 mg/dL (0.1-20.0); Microalbumin/Creatinine Ratio 60.3 ug/mg
[2019-04-11 11:03] LABS: Alanine Aminotransferase 15 units/L (7-56); Albumin 4.1 g/dL (3.9-5); BUN/Creatinine Ratio 25; Blood Urea Nitrogen 25 mg/dL (7-17); Calcium 8.9 mg/dL (8.4-10.2); Hemolysis Index 19
[2019-04-14 11:27] LABS: Vitamin D, 25-OH, D2 12 ng/mL
== END 2019-04-11 10:09 | disposition home or self-care (01) ==
LOC: LAB 10:08
PROVIDERS: ATTEND Internal Medicine Nephrology
DX: N04.8 Nephrotic syndrome with other morphologic changes (principal); I10 Essential (primary) hypertension
CPT/HCPCS: 36415; 80053; 82043; 82306; 85027

== ENCOUNTER 2019-07-13 10:42 | Outpatient (CLI) | payer BC ==
[2019-07-13 11:17] LABS: Basophils # (Auto) 0.1 K/mm3 (0.0-0.1); Basophils % (Auto) 0.9 % (0.0-1.8); Eosinophils # (Auto) 0.3 K/mm3 (0.0-0.4); Eosinophils % (Auto) 4.4 % (0.0-4.3); Hematocrit 42.4 % (30.3-42.9); Hemoglobin 13.9 gm/dl (10.1-14.3); Lymphocytes # (Auto) 1.8 K/mm3 (1.2-5.4); Lymphocytes % (Auto) 30.3 % (13.4-35.0); Mean Corpuscular HGB Conc 33 % (30-34); Mean Corpuscular Volume 85 fl (79-97); Monocytes # (Auto) 0.5 K/mm3 (0.0-0.8); Monocytes % (Auto) 7.7 % (0.0-7.3); Platelet Count 165 K/mm3 (140-440); Red Blood Count 4.98 M/mm3 (3.65-5.03); Red Cell Distribution Width 14.1 % (13.2-15.2)
[2019-07-13 11:26] LABS: Bacteria,Urine 1+ /HPF (Negative); Bilirubin,Urine NEG (Negative); Blood,Urine NEG (Negative); Color,Urine Yellow (Yellow); Mucus,Urine FEW /HPF; Urobilinogen,Urine < 2.0 mg/dL (<2.0)
[2019-07-13 12:30] LABS: Creatinine,Urine 63.3 mg/dL (0.1-20.0)
[2019-07-13 13:02] LABS: Alanine Aminotransferase 16 units/L (7-56); Albumin 3.8 g/dL (3.9-5); BUN/Creatinine Ratio 21; Blood Urea Nitrogen 19 mg/dL (7-17); Calcium 8.1 mg/dL (8.4-10.2); Hemolysis Index 2
[2019-07-18 05:53] LABS: Vitamin D, 25-OH, D2 10 ng/mL
[2019-07-20 22:08] LABS: ANA Screen, IFA Negative (Negative)
== END 2019-07-13 10:43 | disposition home or self-care (01) ==
LOC: LAB 10:42
PROVIDERS: ATTEND Internal Medicine Nephrology
DX: N04.8 Nephrotic syndrome with other morphologic changes (principal); I10 Essential (primary) hypertension
CPT/HCPCS: 36415; 80053; 81001; 82306; 82565; 82570; 82575; 84156; 85025; 86038; 87086